=== PATIENT | male | born 1970 | race Caucasian/White ===

== ENCOUNTER 2016-09-30 22:48 | Emergency (ER) | payer SELFPAY ==
[~2016-09-30] VITALS: Ht 165.1 cm; Wt 95.3 kg
[~2016-09-30 22:48] MED LIST: FOLI1TAB24 PO; MULT-974 PO; NF-DES50T; SERT50TA2 PO; THIA100T12 PO; ZLP10T PO
--- OUTSIDE RECORDS SUMMARY | 2016-09-30 22:54 | XMS REPORT | Continuity of Care Document ---
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 Role Phone ASA VALENCIA DO PCP Insurance Providers Payer Name Policy Number Subscriber Name Relationship Self Pay Rafael Milton 20 Self / Same As Patient Advance Directives Directive Response Recorded Date/Time Advance Directives No 07/18/16 12:52am Health Care Power of Car Inspection And Repair Manager No 07/18/16 12:52am Organ Donor No 07/18/16 12:52am Resuscitation Status Full Code 07/18/16 12:52am Chief Complaint and Reason for Visit Chief Complaint ALCOHOL INTOXICATION;CHRONIC ALCOHOL ABUSE Reason for Visit Alcohol dependence Suicidal ideation Problems Active Problems Medical Problem Onset Date Status Alcohol abuse Unknown Acute Alcohol dependence Unknown Acute Alcohol intoxication Unknown Acute Alcohol intoxication Unknown Acute Chronic alcohol abuse Unknown Acute Hypoxia Unknown Acute Suicidal ideation Unknown Acute Medications Current Home Medications Medication Dose Units Route Directions Days/Qty Instructions Start Date Multivitamin 1 Each 1 Each Oral Daily 0 OVER THE COUNTER 07/19/16 Thiamine Hcl 100 Mg 100 Mg Oral Daily 0 OVER THE COUNTER 07/19/16 Folic Acid 1 Mg 1 Mg Oral Daily 0 OVER THE COUNTER 07/19/16 Past Home Medications Medication Directions Ordered Status Desvenlafaxine Succinate 50 Mg Tab, 10/15/08 Discontinued Zolpidem Tartrate 10 Mg Tab, 10 Mg Oral Bedtime 02/22/14 Discontinued Sertraline Hcl 50 Mg Tablet, 50 Mg Oral Daily 11/25/15 Discontinued Social History Social History Problem Response Recorded Date/Time Alcohol Use Regular Use 03/02/2016 2:37am Recreational Drug Use Y THC, ACID IN HIS 20'S, +IV METH 03/02/2016 2:37am Recent Foreign Travel No 07/18/2016 1:00am Recent Infectious Disease Exposure No 07/18/2016 1:00am Sexually Transmitted Disease No 07/18/2016 1:13am HIV/AIDS No 07/18/2016 1:13am Smoking Status Current Everyday Smoker 07/18/2016 1:11am Do you dip or chew tobacco? Yes 03/02/2016 2:37am Type Used Smokeless Tobacco 07/19/2016 10:33am Recent Hopitalizations No 07/18/2016 1:13am Sexually Transmitted Disease No 07/18/2016 1:13am Query Response Start Date Stop Date Smoking Status Current Everyday Smoker Hospital Discharge Instructions Patient Instructions Physician Instructions Plan of Care/Instructions/FU: transferr to [facility] today. Patient to take multivitamins, thiamine 100 mg and folic acid 1 mg Activity as Tolerated: Yes Discharge Diet: No Restrictions Care Plan Patient Instructions:: transferr to [facility] today.Patient to take multivitamins, thiamine 100 mg and folic acid 1 mg Plan of Care Discharge Date 07/19/16 10:30am Disposition 05 XFER OTHER Instructions/Education Provided ALCOHOL AND SUBSTANCE ABUSE Forms Provided Follow-Up Fax PDI Medical Prescriptions See Medication Section Referrals ASA VALENCIA DO (Unspecified) - Address: [address] [place] [address] [phone] Reason(s) for Referral: FOLLOW UP WITH DR VALENCIA NEEDED Care Plan and Goals See Discharge Instructions Section Functional Status Query Response Date Recorded Patient Orientation Person Place Time Situation Eyes Open July 19, 2016 10:33am Comprehension Ability Understands Concepts July 19, 2016 8:25am Allergies, Adverse Reactions, Alerts Allergen Type Severity Reaction Status Last Updated Codeine Allergy Unknown Active 09/23/05 Immunizations No immunization records. Vital Signs Acute Vital Signs Vital Response Date/Time Temperature (Fahrenheit) 97.5 degrees F (97.6 - 99.5) 07/19/2016 8:00am Temperature (Calculated Celsius) 36.66524 degrees C (36.4 - 37.5) 07/19/2016 8:00am Temperature Source Tympanic 07/19/2016 8:00am Pulse Rate (adult) 95 bpm (60 - 90) 07/19/2016 8:00am Respiratory Rate 20 bpm (12 - 24) 07/19/2016 8:00am O2 Sat by Pulse Oximetry 95 % (88 - 100) 07/19/2016 8:00am Blood Pressure 134/89 mm Hg 07/19/2016 8:00am Blood Pressure Mean 104 mm Hg 07/19/2016 8:00am Pain Numeric Pain Scale 0-No Pain 07/19/2016 10:30am Height (Feet) 5 feet 07/18/2016 12:48am Height (Inches) 5.00 inches 07/18/2016 12:48am Height (Calculated Centimeters) 165.856476 cm 07/18/2016 12:48am Weight (Pounds) 204 pounds 07/19/2016 6:00am Weight (Ounces) 3.2 oz 07/18/2016 6:00am Weight (Calculated Grams) 15924.844 gm 07/19/2016 6:00am Weight (Calculated Kilograms) 92.741416 kilograms 07/19/2016 6:00am Calculated BMI 33.7 07/18/2016 12:48am Capillary Refill Capillary Refill Less Than 3 Seconds 07/18/2016 10:00pm Results Laboratory Results Test Name Result Units Flags Reference Collection Date/Time Result Date/ Time Comments White Blood Count 8.8 10^3/uL 4.3-11.0 07/17/2016 10:16pm 07/17/2016 10 :26pm Red Blood Count 4.94 10^6/uL 4.35-5.85 07/17/2016 10:16pm 07/17/2016 10 :26pm Hemoglobin 15.7 G/DL 13.3-17.7 07/17/2016 10:16pm 07/17/2016 10:26pm Hematocrit 44 % 40-54 07/17/2016 10:16pm 07/17/2016 10:26pm Mean Corpuscular Volume 90 FL 80-99 07/17/2016 10:16pm 07/17/2016 10: 26pm Mean Corpuscular Hemoglobin 32 PG 25-34 07/17/2016 10:16pm 07/17/2016 10:26pm Mean Corpuscular Hemoglobin Concent 35 G/DL 32-36 07/17/2016 10:16pm 10:26pm Red Cell Distribution Width 13.5 % 10.0-14.5 07/17/2016 10:16pm 2015 10:26pm Platelet Count 296 10^3/uL 130-400 07/17/2016 10:16pm 07/17/2016 10: 26pm Mean Platelet Volume 11.1 FL H 7.4-10.4 07/17/2016 10:16pm 07/17/2016 10: 26pm Neutrophils (%) (Auto) 41 % L 42-75 07/17/2016 10:16pm 07/17/2016 10: 26pm Lymphocytes (%) (Auto) 51 % H 12-44 07/17/2016 10:16pm 07/17/2016 10: 26pm Monocytes (%) (Auto) 6 % 0-12 07/17/2016 10:16pm 07/17/2016 10:26pm Eosinophils (%) (Auto) 2 % 0-10 07/17/2016 10:16pm 07/17/2016 10:26pm Basophils (%) (Auto) 0 % 0-10 07/17/2016 10:16pm 07/17/2016 10:26pm Neutrophils # (Auto) 3.6 X 10^3 1.8-7.8 07/17/2016 10:16pm 07/17/2016 10:26pm Lymphocytes # (Auto) 4.5 X 10^3 H 1.0-4.0 07/17/2016 10:16pm 07/17/2016 10:26pm Monocytes # (Auto) 0.5 X 10^3 0.0-1.0 07/17/2016 10:16pm 07/17/2016 10: 26pm Eosinophils # (Auto) 0.2 10^3/uL 0.0-0.3 07/17/2016 10:16pm 07/17/2016 10:26pm Basophils # (Auto) 0.0 10^3/uL 0.0-0.1 07/17/2016 10:16pm 07/17/2016 10 :26pm Prothrombin Time 13.2 SEC 12.2-14.7 07/18/2016 3:50am 07/18/2016 4: 40am INR Comment 1.0 0.8-1.4 07/18/2016 3:50am 07/18/2016 4:40am INTERPRETIVE DATA SUGGESTED THERAPEUTIC RANGE FOR INR'S: VENOUS THROMBOSIS, PULMONARY EMBOLISM, OR PREVENTION OF SYSTEMIC EMBOLISM (EG. IN ATRIAL FIBRILLATION): 2.0 - 3.0 MECHANICAL PROSTHETIC HEART VALVES: 2.5 - 3.5* *NOTE: INR'S UP TO 4.5 MAY BE NECESSARY IN SELECTED GROUPS OF HIGH RISK PATIENTS. [employer] CONSENSUS CONFERENCE ON ANTITHROMBOTIC THERAPY (2000). Activated Partial Thromboplast Time 28 SEC 24-35 07/18/2016 3:50am 4:41am Urine Color YELLOW 07/17/2016 10:42pm 07/17/2016 10:56pm Urine Clarity CLEAR 07/17/2016 10:42pm 07/17/2016 10:56pm Urine pH 5 5-9 07/17/2016 10:42pm 07/17/2016 10:56pm Urine Specific [place] 1.015 * 1.016-1.022 07/17/2016 10:42pm 2015 10:56pm Urine Protein NEGATIVE NEGATIVE 07/17/2016 10:42pm 07/17/2016 10: 56pm Urine Glucose (UA) NEGATIVE NEGATIVE 07/17/2016 10:42pm 07/17/2016 10 :56pm Urine RBC (Auto) 1+ * NEGATIVE 07/17/2016 10:42pm 07/17/2016 10:56pm Urine Ketones 1+ * NEGATIVE 07/17/2016 10:42pm 07/17/2016 10:56pm Urine Nitrite NEGATIVE NEGATIVE 07/17/2016 10:42pm 07/17/2016 10: 56pm Urine Bilirubin NEGATIVE NEGATIVE 07/17/2016 10:42pm 07/17/2016 10: 56pm Urine Urobilinogen NORMAL MG/DL NORMAL 07/17/2016 10:42pm 07/17/2016 10 :56pm Urine Leukocyte Esterase NEGATIVE NEGATIVE 07/17/2016 10:42pm 2015 10:56pm Urine RBC 2-5 /HPF * 07/17/2016 10:42pm 07/17/2016 10:56pm Urine WBC NONE /HPF 07/17/2016 10:42pm 07/17/2016 10:56pm Urine Bacteria NONE /HPF 07/17/2016 10:42pm 07/17/2016 10:56pm Urine Crystals NONE /LPF 07/17/2016 10:42pm 07/17/2016 10:56pm Urine Casts NONE /LPF 07/17/2016 10:42pm 07/17/2016 10:56pm Urine Mucus NEGATIVE /LPF 07/17/2016 10:42pm 07/17/2016 10:56pm Urine Culture Indicated NO 07/17/2016 10:42pm 07/17/2016 10:56pm Sodium Level 140 MMOL/L 135-145 07/19/2016 5:30am 07/19/2016 6:42am Potassium Level 3.5 MMOL/L L 3.6-5.0 07/19/2016 5:30am 07/19/2016 6:42am Chloride Level 111 MMOL/L H 98-107 07/19/2016 5:30am 07/19/2016 6:42am Carbon Dioxide Level 21 MMOL/L 21-32 07/19/2016 5:30am 07/19/2016 6: 42am Anion Gap 8 MMOL/L 5-14 07/19/2016 5:30am 07/19/2016 6:42am Blood Urea Nitrogen 9 MG/DL 7-18 07/19/2016 5:30am 07/19/2016 6:42am Creatinine 0.77 MG/DL 0.60-1.30 07/19/2016 5:30am 07/19/2016 6:42am BUN/Creatinine Ratio 12 07/19/2016 5:30am 07/19/2016 6:42am Estimat Glomerular Filtration Rate > 60 07/19/2016 5:30am 2015 6:42am GFR INTERPRETIVE DATA UNITS FOR ESTIMATED GFR (eGFR): mL/min/1.73 M2 REFERENCE RANGE FOR ESTIMATED GFR (eGFR) eGFR NORMAL eGFR >60 MODERATELY DECREASED eGFR 30-59 SEVERLY DECREASED eGFR 15-29 KIDNEY FAILURE <15 (OR DIALYSIS) Glucose Level 117 MG/DL H 70-105 07/19/2016 5:30am 07/19/2016 6:42am Glucometer 127 MG/DL H 70-110 07/19/2016 5:09am 07/19/2016 5:16am Calcium Level 8.4 MG/DL L 8.5-10.1 07/19/2016 5:30am 07/19/2016 6:42am Total Bilirubin 0.8 MG/DL 0.1-1.0 07/19/2016 5:30am 07/19/2016 6:42am Alkaline Phosphatase 75 U/L 40-136 07/19/2016 5:30am 07/19/2016 6:42am Aspartate Amino Transf (AST/SGOT) 20 U/L 5-34 07/19/2016 5:30am 2015 6:42am Alanine Aminotransferase (ALT/SGPT) 17 U/L 0-55 07/19/2016 5:30am 07/19 6:42am Total Protein 5.7 G/DL L 6.4-8.2 07/19/2016 5:30am 07/19/2016 6:42am Albumin 3.4 G/DL 3.2-4.5 07/19/2016 5:30am 07/19/2016 6:42am Salicylates Level < 5.0 MG/DL L 5.0-20.0 07/17/2016 10:16pm 07/17/2016 10 :44pm Acetaminophen Level < 10 UG/ML L 10-30 07/17/2016 10:16pm 07/17/2016 10: 44pm Hemoglobin A1c 5.1 % 4.5-6.2 07/18/2016 3:50am 07/18/2016 5:34pm Microbiology Results Procedure Source Result Collection Date/Time Result Date/Time MRSA Screen Nasal MRSA not isolated 07/18/2016 12:50am 07/19/2016 9:32am Procedures Procedure Status Date Provider(s) Tracing only of electrocardiogram Completed 07/17/16 EDITH ALMEIDA DO Encounters Encounter Location Arrival/Admit Date Discharge/Depart Date Attending Provider Discharged Inpatient (obs) [facility] [address] 07/17/16 10:55pm 07/19/16 10:30am ASA VALENCIA DO Recent Diagnosis Alcohol dependence Suicidal ideation
[2016-09-30] MEDS ORDERED: NS IV 1000 ML 1,000 ML IV ONE (22:56)
[2016-09-30 23:09] LABS: BASOPHILS % (AUTO) 0 % (0-10); EOSINOPHILS # (AUTO) 0.1 10^3/uL (0.0-0.3); EOSINOPHILS % (AUTO) 1 % (0-10); LYMPHOCYTES % (AUTO) 50 % (12-44); MEAN CORPUSCULAR HEMOGLOBIN 31 PG (25-34); MEAN CORPUSCULAR HGB CONC 35 G/DL (32-36); MEAN CORPUSCULAR VOLUME 87 FL (80-99); MEAN PLATELET VOLUME 10.7 FL (7.4-10.4); MONOCYTES # (AUTO) 0.6 X 10^3 (0.0-1.0); MONOCYTES % (AUTO) 6 % (0-12); NEUTROPHILS # (AUTO) 4.3 X 10^3 (1.8-7.8); NEUTROPHILS % (AUTO) 43 % (42-75); PLATELET COUNT 285 10^3/uL (130-400); RED CELL DISTRIBUTION WIDTH 13.9 % (10.0-14.5)
--- NOTE | 2016-09-30 23:11 | ED Psychosocial ---
General Chief Complaint: Psych/Social Disorder Stated Complaint: NEEDS TO DETOX, WANTS TO SEE DOC Nursing Triage Note: Pt reports he is here for alcohol detox. Pt reports he has drank a 30 pack of beer today and fifth of whiskey. Pt reports he typically drinks at least a fifth of whiskey daily. Pt also reports he needs detox from meth and states he last used 3 days ago. Source: patient Exam Limitations: intoxication History of Present Illness Time seen by provider: 22:58 Initial Comments Here with report of wanting detox due to alcohol and drugs. Apparently he was clean for 60 days but at least a week ago started drinking again. He used methamphetamine about 3 days ago. Reports drinking a case (30 pack) of beer and a fifth of whiskey today or within the last 2 days. Denies any injury or other problems. States that he just wants help and presented to the ER [facility] for evaluation. Timing/Duration: week, getting worse Severity: moderate Allergies and Home Medications Allergies Coded Allergies: codeine (Verified Allergy, Unknown, 09/23/05) Home Medications Folic Acid 1 Mg Tablet #0 1 MG PO DAILY OVER THE COUNTER Prescribed by: ZAID PENG on 07/19/16922 Multivitamin 1 Each Tablet #0 1 EACH PO DAILY OVER THE COUNTER Prescribed by: ZAID PENG on 07/19/16922 Thiamine HCl 100 Mg Tablet #0 100 MG PO DAILY OVER THE COUNTER Prescribed by: ZAID PENG on 07/19/16922 Constitutional: no symptoms reportedNo chills, No fever EENTM: no symptoms reportedNo nose congestion, No throat pain Respiratory: No cough, No short of breath Cardiovascular: No chest pain, No palpitations Gastrointestinal: No abdominal pain, No nausea, No vomiting Genitourinary: No dysuria, No pain Musculoskeletal: no symptoms reported Skin: no symptoms reported Psychiatric/Neurological: See HPI Emotional ProblemsDenies Weakness All Other Systems Reviewed Negative Unless Noted: Yes Past Nhxoszo-[id number]-[id number] Hx Patient Social History Alcohol Use: Regular Use Recreational Drug Use: Yes (meth) Type Used: Smokeless Tobacco Former Smoker/When Quit: 2nd Hand Smoke Exposure: Yes Recent Foreign Travel: No Contact w/Someone Who Travel: No Recent Infectious Disease Expo: No Recent Hopitalizations: No Immunizations Up To Date Tetanus Booster (TDap): Less than 5yrs Date of Influenza Vaccine: May 18, 2016 Seasonal Allergies Seasonal Allergies: No Surgeries HX Surgeries: Yes (COLONOSCOPY, LEFT EYE SURGERY FOR STRABISMUS AGE 4) Surgeries: Eye Surgery Respiratory Hx Respiratory Disorders: Yes Respiratory Disorders: Pneumonia Cardiovascular Hx Cardiac Disorders: No Neurological Hx Neurological Disorders: Yes (ALCOHOL WITHDRAWL SEIZURES) Neurological Disorders: Seizure Disorder Reproductive System Hx Reproductive Disorders: No Sexually Transmitted Disease: No HIV/AIDS: No Genitourinary Hx Genitourinary Disorders: No Gastrointestinal Hx Gastrointestinal Disorders: Yes (HEPATOMEGALY) Gastrointestinal Disorders: Gastroesophageal Reflux Musculoskeletal Hx Musculoskeletal Disorders: No Endocrine Hx Endocrine Disorders: No HEENT HX ENT Disorders: No Loss of Vision: Denies Hearing Impairment: Denies Cancer Hx Cancer: No Psychosocial Hx Psychiatric Problems: Yes (ALCOHOLISM; SUICIDAL IDEATIONS) Behavioral Health Disorders: Depression Integumentary HX Skin/Integumentary Disorder: No Blood Transfusions Hx Blood Disorders: No Adverse Reaction to a Blood Tr: No Reviewed Nursing Assessment Reviewed/Agree w Nursing PMH: Yes Family Medical History Significant Family History: No Pertinent Family Hx, Hypertension Family Medial History: Patient reports no known family medical history. Physical Exam Vital Signs Vital Sign - Last 12Hours 09/30/16 09/30/16 22:59 23:12 Temp 97.5 Pulse 112 Resp 18 B/P 143/108 Pulse Ox 90 O2 Delivery Room Air O2 Flow Rate 2 Capillary Refill : Less Than 3 Seconds General Appearance: WD/WN no apparent distress HEENT: PERRL/EOMI pharynx normal other (did have tobacco in his mouth.) Neck: full range of motion supple Respiratory: lungs clear normal breath sounds Cardiovascular: no murmur tachycardia Gastrointestinal: non tender soft Extremities: non-tender normal inspection Neurologic/Psychiatric: alert oriented x 3 other (slurred speech) Appearance/Memory: appropriate insight disheveled Behavior/Eye Contact: cooperative good eye contact Thoughts/Hallucinations: normal thought pattern no apparent hallucination Skin: normal color warm/dry Progress/Results/Core Measures Results/Orders Lab Results Laboratory Tests Test 09/30/16 00:17 09/30/16 22:57 Range/Units Ur Tricyclic Antidepressants Screen NEGATIVE NEGATIVE Urine Amphetamines Screen NEGATIVE NEGATIVE Urine Barbiturates Screen NEGATIVE NEGATIVE Urine Benzodiazepines Screen NEGATIVE NEGATIVE Urine Cannabinoids Screen NEGATIVE NEGATIVE Urine Cocaine Screen NEGATIVE NEGATIVE Urine Methadone Screen NEGATIVE NEGATIVE Urine Methamphetamines Screen NEGATIVE NEGATIVE Urine Opiates Screen NEGATIVE NEGATIVE Urine Oxycodone Screen NEGATIVE NEGATIVE Urine Phencyclidine Screen NEGATIVE NEGATIVE Urine Propoxyphene Screen NEGATIVE NEGATIVE Acetaminophen Level < 10 L 10-30 UG/ML Alanine Aminotransferase (ALT/SGPT) 14 0-55 U/L Albumin 4.2 3.2-4.5 G/DL Alkaline Phosphatase 86 40-136 U/L Anion Gap 14 5-14 MMOL/L Aspartate Amino Transf (AST/SGOT) 25 5-34 U/L BUN/Creatinine Ratio 8 Basophils # (Auto) 0.0 0.0-0.1 10^3/uL Basophils (%) (Auto) 0 0-10 % Blood Urea Nitrogen 7 7-18 MG/DL Calcium Level 8.6 8.5-10.1 MG/DL Carbon Dioxide Level 22 21-32 MMOL/L Chloride Level 100 98-107 MMOL/L Creatinine 0.87 0.60-1.30 MG/DL Eosinophils # (Auto) 0.1 0.0-0.3 10^3/uL Eosinophils (%) (Auto) 1 0-10 % Estimat Glomerular Filtration Rate > 60 Glucose Level 138 H 70-105 MG/DL Hematocrit 44 40-54 % Hemoglobin 15.4 13.3-17.7 G/DL Lymphocytes # (Auto) 5.0 H 1.0-4.0 X 10^3 Lymphocytes (%) (Auto) 50 H 12-44 % Mean Corpuscular Hemoglobin 31 25-34 PG Mean Corpuscular Hemoglobin Concent 35 32-36 G/DL Mean Corpuscular Volume 87 80-99 FL Mean Platelet Volume 10.7 H 7.4-10.4 FL Monocytes # (Auto) 0.6 0.0-1.0 X 10^3 Monocytes (%) (Auto) 6 0-12 % Neutrophils # (Auto) 4.3 1.8-7.8 X 10^3 Neutrophils (%) (Auto) 43 42-75 % Platelet Count 285 130-400 10^3/uL Potassium Level 3.4 L 3.6-5.0 MMOL/L Red Blood Count 5.00 4.35-5.85 10^6/uL Red Cell Distribution Width 13.9 10.0-14.5 % Salicylates Level < 5.0 L 5.0-20.0 MG/DL Serum Alcohol 296 H <10 MG/DL Sodium Level 136 135-145 MMOL/L Total Bilirubin 0.6 0.1-1.0 MG/DL Total Protein 7.0 6.4-8.2 G/DL White Blood Count 10.0 4.3-11.0 10^3/uL My Orders Orders-DANIELLA LANDA MD Acetaminophen (09/30/16 22:56) Alcohol (09/30/16 22:56) Cbc With Automated Diff (09/30/16 22:56) Comprehensive Metabolic Panel (09/30/16 22:56) Drug Screen Stat (Urine) (09/30/16 22:56) Salicylate (09/30/16 22:56) Ekg Tracing (09/30/16 22:56) Saline Lock/Iv-Start (09/30/16 22:56) Ns Iv 1000 Ml (Sodium Chloride 0.9%) (09/30/16 22:56) O2 (09/30/16 23:12) Lactated Ringers (Lr 1000 Ml Iv Solution (09/30/16 23:27) Medications Given in ED Current Medications Medications Dose Ordered Sig/Yadira Route Start Time Stop Time Status Last Admin Dose Admin Lactated Ringer's 1,000 ml @ 0 mls/hr Q0M ONCE IV 09/30/16 23:27 09/30/16 23:28 DC 09/30/16 23:33 999 MLS/HR Sodium Chloride 1,000 ml @ 0 mls/hr Q0M ONCE IV 09/30/16 22:56 09/30/16 22:58 DC 09/30/16 23:05 999 MLS/HR Vital Signs/I&O Vital Sign - Last 12Hours 09/30/16 09/30/16 22:59 23:12 Temp 97.5 Pulse 112 Resp 18 B/P 143/108 Pulse Ox 90 89 O2 Delivery Room Air Nasal Cannula O2 Flow Rate 2 Blood Pressure Mean: 120 Progress Note : Progress Note Seen and evaluated. IV, labs and UA ordered. EKG ordered. All of this is an effort for medical clearance. Patient is currently intoxicated and we do not have detox capability currently. I did discuss with him about following up with his doctor who helped him the last time and I suspect would be willing to assist him again. This was discussed with the patient verbalize understanding. We will ensure that he has no significant issues otherwise and then discharged home for follow-up with his primary care (Dr. Valencia). Copy of chart Dr. Valencia. Monitor patient. 0120: Labs reviewed. Alcohol elevated but otherwise no significant findings. Discharged home with return precautions. Patient will follow-up with Dr. Valencia for further evaluation and treatment of alcohol. Patient verbalize understanding instructions and agreement with plan. ECG Initial ECG Impression Date: Sep 30, 2016 Initial ECG Impression Time: 23:09 Initial ECG Rate: 115 Initial ECG Rhythm: Normal Sinus Comment Sinus tachycardia with normal axis. No evidence of ST elevation VA. Similar to previous of 07/17/16 including right. Interpreted by me. Departure Impression Impression: Primary Impression: Alcohol abuse Additional Impression: Alcohol intoxication Qualified Code: F10.120 - Alcohol abuse with intoxication, uncomplicated Disposition: HOME, SELF-CARE Condition: Improved Departure-Patient Inst. Decision time for Depature: 01:23 Referrals: ASA VALENCIA DO (PCP/Family) Primary Care Physician Patient Instructions: ALCOHOL AND SUBSTANCE ABUSE Add. Discharge Instructions: All discharge instructions reviewed with patient and/or family. Voiced understanding. Follow-up with Dr. Valencia today for recheck and further evaluation and did discuss alcohol detox and/or treatment. Avoid drugs. He should not drink alcohol. Return for worsening, fever, vomiting, weakness, breathing problems or other concerns as needed. Copy Copies To 1: ASA VALENCIA TIMOTHY D MD Sep 30, 2016 23:11
[2016-09-30 23:25] LABS: ALANINE AMINOTRANSFERASE 14 U/L (0-55); ALBUMIN 4.2 G/DL (3.2-4.5); ALCOHOL 296 MG/DL (<10); ANION GAP 14 MMOL/L (5-14); ASPARTATE AMINO TRANSFERASE 25 U/L (5-34); BILIRUBIN,TOTAL 0.6 MG/DL (0.1-1.0); BLOOD UREA NITROGEN 7 MG/DL (7-18); BUN/CREATININE RATIO 8; CALCIUM 8.6 MG/DL (8.5-10.1); CARBON DIOXIDE 22 MMOL/L (21-32); CHLORIDE 100 MMOL/L (98-107); CREATININE SERUM 0.87 MG/DL (0.60-1.30); GFR ESTIMATED > 60; GLUCOSE 138 MG/DL (70-105); POTASSIUM 3.4 MMOL/L (3.6-5.0); SALICYLATE < 5.0 MG/DL (5.0-20.0); SODIUM 136 MMOL/L (135-145)
[2016-09-30] MEDS ORDERED: LACTATED RINGERS 1,000 ML IV ONE (23:27)
[2016-09-30 23:35] LABS: ACETAMINOPHEN < 10 UG/ML (10-30)
[2016-10-01 01:35] VITALS: BP 125/104
== END 2016-10-01 01:35 | disposition home or self-care (01) ==
LOC: EDUNIT# 22:48 → ER 22:50
DX: F10.229 Alcohol dependence with intoxication, unspecified (principal); F15.10 Other stimulant abuse, uncomplicated; Y90.8 Blood alcohol level of 240 mg/100 ml or more; F17.220 Nicotine dependence, chewing tobacco, uncomplicated
CPT/HCPCS: 36415; 80053; 80306; 80320; 80329; 85025; 93005; 96360

== ENCOUNTER 2017-02-01 00:27 | Emergency (ER) | payer SELFPAY ==
[~2017-02-01] VITALS: Ht 167.6 cm; Wt 95.3 kg
--- NOTE | 2017-02-01 01:03 | ED Psychosocial ---
General Chief Complaint: Substance Abuse Stated Complaint: DETOX Source: patient, RN notes reviewed, old records Exam Limitations: no limitations History of Present Illness Time seen by provider: 01:00 Initial Comments Patient presents requesting ETOH detox. Has long/extensive hx of ETOH abuse. Has been thru detox before and wishes to pursue it again. 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 Reports drinking @ least a 30 pack of beer today. Timing/Duration: constant, getting worse Associated Symptoms: ingestion Allergies and Home Medications Allergies Coded Allergies: codeine (Verified Allergy, Unknown, 09/23/05) Home Medications Folic Acid 1 Mg Tablet, 1 MG PO DAILY, #0 OVER THE COUNTER Prescribed by: ZAID PENG on 07/19/16922 Multivitamin 1 Each Tablet, 1 EACH PO DAILY, #0 OVER THE COUNTER Prescribed by: ZAID PENG on 07/19/16922 Thiamine HCl 100 Mg Tablet, 100 MG PO DAILY, #0 OVER THE COUNTER Prescribed by: ZAID PENG on 07/19/16922 Constitutional: see HPI All Other Systems Reviewed Negative Unless Noted: Yes (Negative excepted noted.) Past Escjydi-Cynaxt-Xhnxep Hx Patient Social History Type Used: Smokeless Tobacco 2nd Hand Smoke Exposure: Yes Recent Foreign Travel: No Contact w/Someone Who Travel: No Recent Hopitalizations: No Immunizations Up To Date Tetanus Booster (TDap): Less than 5yrs Date of Influenza Vaccine: May 18, 2016 Seasonal Allergies Seasonal Allergies: No Surgeries HX Surgeries: Yes (COLONOSCOPY, LEFT EYE SURGERY FOR STRABISMUS AGE 4) Surgeries: Eye Surgery Respiratory Hx Respiratory Disorders: Yes Respiratory Disorders: Pneumonia Cardiovascular Hx Cardiac Disorders: No Neurological Hx Neurological Disorders: Yes (ALCOHOL WITHDRAWL SEIZURES) Neurological Disorders: Seizure Disorder Reproductive System Hx Reproductive Disorders: No Sexually Transmitted Disease: No HIV/AIDS: No Genitourinary Hx Genitourinary Disorders: No Gastrointestinal Hx Gastrointestinal Disorders: Yes (HEPATOMEGALY) Gastrointestinal Disorders: Gastroesophageal Reflux Musculoskeletal Hx Musculoskeletal Disorders: No Endocrine Hx Endocrine Disorders: No HEENT HX ENT Disorders: No Loss of Vision: Denies Hearing Impairment: Denies Cancer Hx Cancer: No Psychosocial Hx Psychiatric Problems: Yes (ALCOHOLISM; SUICIDAL IDEATIONS) Behavioral Health Disorders: Depression Integumentary HX Skin/Integumentary Disorder: No Blood Transfusions Hx Blood Disorders: No Adverse Reaction to a Blood Tr: No Family Medical History Significant Family History: No Pertinent Family Hx, Hypertension Family Medial History: Patient reports no known family medical history. Physical Exam Vital Signs Vital Sign - Last 12Hours 02/01/17 00:34 Temp 98.1 Pulse 95 Resp 20 B/P (MAP) 142/104 Pulse Ox 98 O2 Delivery Room Air Capillary Refill : General Appearance: WD/WN, mild distress Respiratory: no respiratory distress Cardiovascular: regular rate, rhythm Neurologic/Psychiatric: no motor/sensory deficits, alert, depressed affect Appearance/Memory: denies illness, disheveled Behavior/Eye Contact: cooperative Thoughts/Hallucinations: normal thought pattern Skin: warm/dry Progress/Results/Core Measures Results/Orders Lab Results Laboratory Tests Test 02/01/17 00:40 02/01/17 01:55 Range/Units White Blood Count 11.5 H 4.3-11.0 10^3/uL Red Blood Count 4.59 4.35-5.85 10^6/uL Hemoglobin 15.1 13.3-17.7 G/DL Hematocrit 44 40-54 % Mean Corpuscular Volume 95 80-99 FL Mean Corpuscular Hemoglobin 33 25-34 PG Mean Corpuscular Hemoglobin Concent 35 32-36 G/DL Red Cell Distribution Width 13.5 10.0-14.5 % Platelet Count 193 130-400 10^3/uL Mean Platelet Volume 11.0 H 7.4-10.4 FL Neutrophils (%) (Auto) 46 42-75 % Lymphocytes (%) (Auto) 44 12-44 % Monocytes (%) (Auto) 8 0-12 % Eosinophils (%) (Auto) 2 0-10 % Basophils (%) (Auto) 0 0-10 % Neutrophils # (Auto) 5.2 1.8-7.8 X 10^3 Lymphocytes # (Auto) 5.1 H 1.0-4.0 X 10^3 Monocytes # (Auto) 1.0 0.0-1.0 X 10^3 Eosinophils # (Auto) 0.2 0.0-0.3 10^3/uL Basophils # (Auto) 0.0 0.0-0.1 10^3/uL Sodium Level 136 135-145 MMOL/L Potassium Level 3.3 L 3.6-5.0 MMOL/L Chloride Level 103 98-107 MMOL/L Carbon Dioxide Level 19 L 21-32 MMOL/L Anion Gap 14 5-14 MMOL/L Blood Urea Nitrogen 8 7-18 MG/DL Creatinine 0.78 0.60-1.30 MG/DL Estimat Glomerular Filtration Rate > 60 BUN/Creatinine Ratio 10 0-20 Glucose Level 129 H 70-105 MG/DL Calcium Level 8.9 8.5-10.1 MG/DL Magnesium Level 2.2 1.8-2.4 MG/DL Total Bilirubin 0.7 0.1-1.0 MG/DL Aspartate Amino Transf (AST/SGOT) 20 5-34 U/L Alanine Aminotransferase (ALT/SGPT) 16 0-55 U/L Alkaline Phosphatase 78 40-136 U/L Total Protein 7.4 6.4-8.2 GM/DL Albumin 4.0 3.2-4.5 GM/DL Serum Alcohol 276 H <10 MG/DL Urine Color YELLOW Urine Clarity CLEAR Urine pH 5 5-9 Urine Specific [place] 1.025 H 1.016-1.022 Urine Protein NEGATIVE NEGATIVE Urine Glucose (UA) NEGATIVE NEGATIVE Urine Ketones 1+ H NEGATIVE Urine Nitrite NEGATIVE NEGATIVE Urine Bilirubin NEGATIVE NEGATIVE Urine Urobilinogen NORMAL NORMAL MG/DL Urine Leukocyte Esterase 1+ H NEGATIVE Urine RBC (Auto) 1+ H NEGATIVE Urine RBC NONE /HPF Urine WBC NONE /HPF Urine Squamous Epithelial Cells 2-5 /HPF Urine Crystals NONE /LPF Urine Bacteria NEGATIVE /HPF Urine Casts NONE /LPF Urine Mucus MODERATE H /LPF Urine Culture Indicated NO Urine Opiates Screen NEGATIVE NEGATIVE Urine Oxycodone Screen NEGATIVE NEGATIVE Urine Methadone Screen NEGATIVE NEGATIVE Urine Propoxyphene Screen NEGATIVE NEGATIVE Urine Barbiturates Screen NEGATIVE NEGATIVE Ur Tricyclic Antidepressants Screen NEGATIVE NEGATIVE Urine Phencyclidine Screen NEGATIVE NEGATIVE Urine Amphetamines Screen NEGATIVE NEGATIVE Urine Methamphetamines Screen NEGATIVE NEGATIVE Urine Benzodiazepines Screen NEGATIVE NEGATIVE Urine Cocaine Screen NEGATIVE NEGATIVE Urine Cannabinoids Screen NEGATIVE NEGATIVE My Orders Orders - MELANIE RAMACHANDRAN DO Alcohol (02/01/17 01:00) Cbc With Automated Diff (02/01/17 01:00) Comprehensive Metabolic Panel (02/01/17 01:00) Drug Screen Stat (Urine) (02/01/17 01:00) Magnesium (02/01/17 01:00) Ua Culture If Indicated (02/01/17 01:00) Vital Signs/I&O Vital Sign - Last 12Hours 02/01/17 02/01/17 00:34 03:09 Temp 98.1 Pulse 95 78 Resp 20 18 B/P (MAP) 142/104 Pulse Ox 98 98 O2 Delivery Room Air Room Air Departure Impression Impression: Primary Impression: Alcohol dependence Additional Impression: Alcohol intoxication Disposition: 01 HOME, SELF-CARE Condition: Stable Departure-Patient Inst. Decision time for Depature: 02:39 Referrals: ASA VALENCIA DO (PCP/Family) Primary Care Physician Patient Instructions: ALCOHOL AND SUBSTANCE ABUSE, Alcohol Abuse and Alcoholism (DC) Add. Discharge Instructions: All discharge instructions reviewed with patient and/or family. Voiced understanding. NEED TO CALL THE [facility]HOL TRE[facility]MENT CENTER ([facility]) IN [place] LATER THIS AM, 02/01, TO ARRANGE TREATMENT. THERE NUMBER IS [phone]. MELANIE RAMACHANDRAN DO Feb 01, 2017 01:03
[2017-02-01 01:16] LABS: BASOPHILS % (AUTO) 0 % (0-10); EOSINOPHILS # (AUTO) 0.2 10^3/uL (0.0-0.3); EOSINOPHILS % (AUTO) 2 % (0-10); LYMPHOCYTES # (AUTO) 5.1 X 10^3 (1.0-4.0); LYMPHOCYTES % (AUTO) 44 % (12-44); MEAN CORPUSCULAR HEMOGLOBIN 33 PG (25-34); MEAN CORPUSCULAR HGB CONC 35 G/DL (32-36); MEAN CORPUSCULAR VOLUME 95 FL (80-99); MONOCYTES % (AUTO) 8 % (0-12); NEUTROPHILS # (AUTO) 5.2 X 10^3 (1.8-7.8); NEUTROPHILS % (AUTO) 46 % (42-75); PLATELET COUNT 193 10^3/uL (130-400); RED BLOOD COUNT 4.59 10^6/uL (4.35-5.85); RED CELL DISTRIBUTION WIDTH 13.5 % (10.0-14.5); WHITE BLOOD COUNT 11.5 10^3/uL (4.3-11.0)
[2017-02-01 01:34] LABS: ALANINE AMINOTRANSFERASE 16 U/L (0-55); ALCOHOL 276 MG/DL (<10); ANION GAP 14 MMOL/L (5-14); ASPARTATE AMINO TRANSFERASE 20 U/L (5-34); BILIRUBIN,TOTAL 0.7 MG/DL (0.1-1.0); BLOOD UREA NITROGEN 8 MG/DL (7-18); BUN/CREATININE RATIO 10 (0-20); CALCIUM 8.9 MG/DL (8.5-10.1); CARBON DIOXIDE 19 MMOL/L (21-32); CHLORIDE 103 MMOL/L (98-107); CREATININE SERUM 0.78 MG/DL (0.60-1.30); GFR ESTIMATED > 60; GLUCOSE 129 MG/DL (70-105); HEMOLYSIS 8 (0-29); ICTERUS 0.7 (0-1.9); LIPEMIA 2 (0-49); MAGNESIUM 2.2 MG/DL (1.8-2.4); POTASSIUM 3.3 MMOL/L (3.6-5.0); SODIUM 136 MMOL/L (135-145); TOTAL PROTEIN 7.4 GM/DL (6.4-8.2)
[2017-02-01 02:04] LABS: BILIRUBIN,URINE NEGATIVE (NEGATIVE); KETONES,URINE 1+ (NEGATIVE); LEUKOCYTE ESTERASE ,URINE 1+ (NEGATIVE); NITRITE,URINE NEGATIVE (NEGATIVE); PH,URINE 5 (5-9); PROTEIN,URINE NEGATIVE (NEGATIVE); UROBILINOGEN,URINE NORMAL (NORMAL)
[2017-02-01 03:09] VITALS: BP 130/80
== END 2017-02-01 03:00 | disposition home or self-care (01) ==
LOC: EDUNIT# 00:27 → ER 00:33
DX: F10.229 Alcohol dependence with intoxication, unspecified (principal); G40.909 Epilepsy, unspecified, not intractable, without status epilepticus; F17.290 Nicotine dependence, other tobacco product, uncomplicated
CPT/HCPCS: 36415; 80053; 80306; 80320; 81000; 83735; 85025; 99283

== ENCOUNTER 2017-11-12 00:44 | Emergency (ER) | payer SELFPAY ==
[~2017-11-12] VITALS: Ht 172.7 cm; Wt 70.3 kg
[2017-11-12] MEDS ORDERED: THIAMINE INJECTION 100 MG, FOLIC ACID INJECTION 1 MG, VITAMIN MULTI INJECTION 10 ML, MA... IV STA ×5 (01:01)
--- NOTE | 2017-11-12 01:10 | ED Psychosocial ---
General Stated Complaint: WANTS TO DETOX Source: patient, old records Exam Limitations: no limitations History of Present Illness Date Seen by Provider: Nov 12, 2017 Time Seen by Provider: 01:00 Initial Comments Patient presents to ER by caroline with a chief complaint that he just flew back in from [facility] and was doing some drinking approximately 1 gallon of whiskey and several beers tonight when he decided he needed to detox. He says he wants a medical detox that he can go back to [place] and go to the inpatient alcohol treatment center at [facility]. He says he has successfully done in inpatient alcohol withdrawal program at [place] [facility] or 7 years under the care of Dr. Valencia in the past. He now says nothing specifically happened he just wants to get detox tonight. He says his last drink was just before coming to the ER. He is having no seizures or headaches. He is having no nausea or vomiting. He has no fevers cough or chills. He says he's under treatment with vitamin B12 shots and testosterone shots and supposed to be on some blood pressure and anticholesterol medicines from a doctor who sees him in [facility] but he has not been taking any of the pills. He says is been a while since he seen Dr. Valencia and he came back to [place] because he had a job at the [employer] in [place], [place]. Tonight he says he was drinking at [place], [place]. He has specifically asked that he be given Librium in the ER to help with his withdrawal symptoms. When asked what his withdrawal symptoms are he states merely that he wants to quit drinking and detox. Allergies and Home Medications Allergies Coded Allergies: codeine (Verified Allergy, Unknown, 09/23/05) Home Medications Folic Acid 1 Mg Tablet, 1 MG PO DAILY OVER THE COUNTER Prescribed by: ZAID PENG on 07/19/16922 Multivitamin 1 Each Tablet, 1 EACH PO DAILY OVER THE COUNTER Prescribed by: ZAID PENG on 07/19/16922 Thiamine HCl 100 Mg Tablet, 100 MG PO DAILY OVER THE COUNTER Prescribed by: ZAID PENG on 07/19/16922 Patient Home Medication List Home Medication List Reviewed: Yes Constitutional: No chills, No diaphoresis, No fever EENTM: No ear discharge, No ear pain, No double vision, No eye pain Respiratory: No cough, No short of breath Cardiovascular: No chest pain, No edema, No Hx of Intervention, No palpitations Gastrointestinal: No abdominal pain, No constipation, No diarrhea, No nausea, No vomiting Genitourinary: No discharge, No dysuria Musculoskeletal: No back pain, No joint pain Skin: No pruritus, No rash Psychiatric/Neurological: Denies Headache, Denies Numbness Past Qwpftnk-Ozpslr-Trmqzq Hx Patient Social History Alcohol Use: Regular Use Alcohol Beverage of Choice: Beer, Whiskey Recreational Drug Use: No Drug of Choice: weed Smoking Status: Current Everyday Smoker Type Used: Cigarettes, Smokeless Tobacco 2nd Hand Smoke Exposure: Yes Recent Foreign Travel: No Contact w/Someone Who Travel: No Recent Hopitalizations: No Immunizations Up To Date Tetanus Booster (TDap): Less than 5yrs Date of Influenza Vaccine: May 18, 2016 Seasonal Allergies Seasonal Allergies: No Surgeries History of Surgeries: Yes (COLONOSCOPY, LEFT EYE SURGERY FOR STRABISMUS AGE 4) Surgeries: Eye Surgery Respiratory History of Respiratory Disorde: Yes Respiratory Disorders: Pneumonia Currently Using CPAP: No Currently Using BIPAP: No Cardiovascular History of Cardiac Disorders: No Neurological History of Neurological Disord: Yes (ALCOHOL WITHDRAWL SEIZURES) Neurological Disorders: Seizure Disorder Reproductive System Hx Reproductive Disorders: No Sexually Transmitted Disease: No HIV/AIDS: No Genitourinary History of Genitourinary Disor: No Gastrointestinal History of Gastrointestinal Di: Yes (HEPATOMEGALY) Gastrointestinal Disorders: Gastroesophageal Reflux Musculoskeletal History of Musculoskeletal Dis: No Endocrine History of Endocrine Disorders: No HEENT Loss of Vision: Denies Hearing Impairment: Denies Cancer History of Cancer: No Psychosocial History of Psychiatric Problem: Yes (ALCOHOLISM; SUICIDAL IDEATIONS) Behavioral Health Disorders: Depression Integumentary History of Skin or Integumenta: No Blood Transfusions History of Blood Disorders: No Adverse Reaction to a Blood Tr: No Family Medical History Significant Family History: No Pertinent Family Hx, Hypertension Family Medial History: Patient reports no known family medical history. Physical Exam Vital Signs Vital Signs - First Documented 11/12/17 00:50 Temp 98.3 Pulse 132 Resp 20 B/P (MAP) 150/111 (124) Pulse Ox 92 O2 Delivery Room Air Capillary Refill : General Appearance: WD/WN, no apparent distress HEENT: PERRL/EOMI, pharynx normal Neck: non-tender, normal inspection Respiratory: chest non-tender, lungs clear, normal breath sounds, no respiratory distress, no accessory muscle use Cardiovascular: normal peripheral pulses, regular rate, rhythm Peripheral Pulses: 2+ Radial Pulses (R), 2+ Radial Pulses (L) Gastrointestinal: normal bowel sounds, non tender, soft, distended Extremities: normal range of motion, non-tender, normal inspection, normal capillary refill Neurologic/Psychiatric: alert, other (overtly intoxicated with very mild slurring speech and slowed mentation.) Appearance/Memory: appropriate appearance, no memory impairment, disheveled, No impaired recent memory, No impaired remote memory Behavior/Eye Contact: cooperative, good eye contact, No avoids eye contact, No belligerent, No compulsive, No uncooperative Thoughts/Hallucinations: no apparent hallucination Skin: normal color, warm/dry Progress/Results/Core Measures Results/Orders Lab Results Laboratory Tests Test 11/12/17 01:17 11/12/17 01:37 Range/Units White Blood Count 12.7 H 4.3-11.0 10^3/uL Red Blood Count 5.05 4.35-5.85 10^6/uL Hemoglobin 15.8 13.3-17.7 G/DL Hematocrit 44 40-54 % Mean Corpuscular Volume 87 80-99 FL Mean Corpuscular Hemoglobin 31 25-34 PG Mean Corpuscular Hemoglobin Concent 36 32-36 G/DL Red Cell Distribution Width 13.7 10.0-14.5 % Platelet Count 310 130-400 10^3/uL Mean Platelet Volume 10.5 H 7.4-10.4 FL Neutrophils (%) (Auto) 36 L 42-75 % Lymphocytes (%) (Auto) 57 H 12-44 % Monocytes (%) (Auto) 5 0-12 % Eosinophils (%) (Auto) 2 0-10 % Basophils (%) (Auto) 0 0-10 % Neutrophils # (Auto) 4.6 1.8-7.8 X 10^3 Lymphocytes # (Auto) 7.2 H 1.0-4.0 X 10^3 Monocytes # (Auto) 0.6 0.0-1.0 X 10^3 Eosinophils # (Auto) 0.3 0.0-0.3 10^3/uL Basophils # (Auto) 0.0 0.0-0.1 10^3/uL Sodium Level 139 135-145 MMOL/L Potassium Level 3.5 L 3.6-5.0 MMOL/L Chloride Level 104 98-107 MMOL/L Carbon Dioxide Level 21 21-32 MMOL/L Anion Gap 14 5-14 MMOL/L Blood Urea Nitrogen 13 7-18 MG/DL Creatinine 0.78 0.60-1.30 MG/DL Estimat Glomerular Filtration Rate > 60 BUN/Creatinine Ratio 17 Glucose Level 100 70-105 MG/DL Calcium Level 8.8 8.5-10.1 MG/DL Magnesium Level 2.2 1.8-2.4 MG/DL Total Bilirubin 0.6 0.1-1.0 MG/DL Aspartate Amino Transf (AST/SGOT) 29 5-34 U/L Alanine Aminotransferase (ALT/SGPT) 27 0-55 U/L Alkaline Phosphatase 108 40-136 U/L Troponin I < 0.30 <0.30 NG/ML Total Protein 7.8 6.4-8.2 GM/DL Albumin 4.4 3.2-4.5 GM/DL Serum Alcohol 317 *H <10 MG/DL Urine Color YELLOW Urine Clarity CLEAR Urine pH 5 5-9 Urine Specific [place] 1.010 L 1.016-1.022 Urine Protein NEGATIVE NEGATIVE Urine Glucose (UA) NEGATIVE NEGATIVE Urine Ketones NEGATIVE NEGATIVE Urine Nitrite NEGATIVE NEGATIVE Urine Bilirubin NEGATIVE NEGATIVE Urine Urobilinogen NORMAL NORMAL MG/DL Urine Leukocyte Esterase NEGATIVE NEGATIVE Urine RBC (Auto) NEGATIVE NEGATIVE Urine RBC NONE /HPF Urine WBC NONE /HPF Urine Squamous Epithelial Cells RARE /HPF Urine Crystals NONE /LPF Urine Bacteria NEGATIVE /HPF Urine Casts NONE /LPF Urine Mucus NEGATIVE /LPF Urine Culture Indicated NO Urine Opiates Screen NEGATIVE NEGATIVE Urine Oxycodone Screen NEGATIVE NEGATIVE Urine Methadone Screen NEGATIVE NEGATIVE Urine Propoxyphene Screen NEGATIVE NEGATIVE Urine Barbiturates Screen NEGATIVE NEGATIVE Ur Tricyclic Antidepressants Screen NEGATIVE NEGATIVE Urine Phencyclidine Screen NEGATIVE NEGATIVE Urine Amphetamines Screen NEGATIVE NEGATIVE Urine Methamphetamines Screen NEGATIVE NEGATIVE Urine Benzodiazepines Screen NEGATIVE NEGATIVE Urine Cocaine Screen NEGATIVE NEGATIVE Urine Cannabinoids Screen NEGATIVE NEGATIVE My Orders Orders - DARIEL PERKINS Alcohol (11/12/17 01:01) Cbc With Automated Diff (11/12/17 01:01) Comprehensive Metabolic Panel (11/12/17 01:01) Drug Screen Stat (Urine) (11/12/17 01:01) Magnesium (11/12/17 01:01) Troponin I (11/12/17 01:01) Ua Culture If Indicated (11/12/17 01:01) Saline Lock/Iv-Start (11/12/17 01:01) Ekg Tracing (11/12/17 01:01) Monitor-Rhythm Ecg Trace Only (11/12/17 01:01) Thiamine Injection (Vitamin B-1 Injectio (11/12/17 01:01) Ns Iv 1000 Ml (Sodium Chloride 0.9%) (11/12/17 01:21) Magnesium Sulfate Inj (Magnesium Sulfate (11/12/17 01:21) Folic Acid Syr (Ed) (Folic Acid Syr (Ed) (11/12/17 01:21) Thiamine Injection (Vitamin B-1 Injectio (11/12/17 01:21) Vitamin Multi Injection (Mvi 12 Injectio (11/12/17 01:24) D5 1/2 Ns W/Kcl 10 Meq/L (Dextrose 5%/0. (11/12/17 01:56) D5 1/2 Ns W/Kcl 20 Meq/L (Dextrose 5%/0. (11/12/17 02:24) Folic Acid Syr (Ed) (Folic Acid Syr (Ed) (11/12/17 02:36) Medications Given in ED Current Medications Medications Dose Ordered Sig/Yadira Route Start Time Stop Time Status Last Admin Dose Admin Folic Acid 1 mg STK-MED ONCE .ROUTE 11/12/17 01:21 11/12/17 01:26 DC 11/12/17 01:37 1 MG Magnesium Sulfate 1 gm STK-MED ONCE .ROUTE 11/12/17 01:21 11/12/17 01:26 DC 11/12/17 01:37 1 GM Multivitamins 10 ml STK-MED ONCE IV 11/12/17 01:24 11/12/17 01:28 DC 11/12/17 01:37 10 ML Sodium Chloride 1,000 ml @ ud STK-MED ONCE .ROUTE 11/12/17 01:21 11/12/17 01:25 DC 11/12/17 01:37 999 MLS/HR Thiamine HCl 200 mg STK-MED ONCE .ROUTE 11/12/17 01:21 11/12/17 01:26 DC 11/12/17 01:37 200 MG Vital Signs/I&O Vital Sign - Last 12Hours 11/12/17 00:50 Temp 98.3 Pulse 132 Resp 20 B/P (MAP) 150/111 (124) Pulse Ox 92 O2 Delivery Room Air Progress Note #1: Time: 01:10 Progress Note Medical exam for alcohol intoxication. We'll obtain some urine and give him a banana bag. The patient last drink was tonight just prior to coming to the ER he is in no significant danger of delirium tremens today. We have discussed outpatient versus inpatient therapy options and he uses outpatient therapy never works for him and he would like to go inpatient in [facility]. He says he wants us to medically detox him until he is safe so he can fly back to [facility] and go to the inpatient alcohol treatment center. Patient has multiple ER contacts here for this exact problem where he wants to be inpatient detox 10 usually presents after having drank copious alcohol and has a fairly high alcohol level. Previous notes indicate the patient has been seen by Dr. Valencia in the hospital but never in follow-up. Apparently he never has been seen in the clinic by Dr. Valencia just in the hospital. The patient has indicated that he had 7 years of being alcohol free under the care of Dr. Valencia after a stent inpatient with [place] [facility]. If his alcohol levels are still high this may be a very good option for him as he is in no immediate danger withdrawing if he was still drinking tonight before coming into the ER. I'm advised that we do not have capacity for alcohol withdrawal inpatient tonight. We'll stabilize him and look for any other secondary reason for admission and if nothing is found he should be good to go home and contact the [place] [facility] in the morning, 11/13/17. Progress Note #2: Time: 02:06 Progress Note Patient's alcohol level was 317. EKG unremarkable. We'll give him a second IV fluids in addition to the banana bag and given about an hour total when his alcohol level below 300. No need to recheck. Since there is no pressing medical median he clearly has an alcohol level that is increased have with delirium tremens he would be reasonable to follow through with our initial plan to have him follow up outpatient tomorrow. He has a Primary care contact here in [facility] and he has had success at the [place], [place] alcohol treatment center. Although is a bit of a poor historian he seems also indicates there may be an [facility] [place] he would like to use. He says he has a brother who lives in [place] as well as he has a house in [place]. He is not describing any other concerning medical issue at this time. Progress Note #3: Time: 03:07 Progress Note Patient awakens easily and on serial examination. His mentation is improved a little. At this point is been here for 2 hours his blood alcohol level should' ve improved some. He is received 2 L of fluid and his examination and laboratory evaluation has been unremarkable for any other dangerous pathology other than moderate alcohol intoxication. He has a place he can stay at [address] [place] [address] in [facility]. ECG Initial ECG Impression Date: Nov 12, 2017 Initial ECG Impression Time: 01:09 Initial ECG Rate: 124 Initial ECG Rhythm: S.Tach Initial ECG Intervals: Normal Initial ECG Impression: Normal Initial ECG Comparisson: Unchanged Comment Sinus tachycardia without ST segment elevation or depression. Departure Impression Impression: Primary Impression: Chronic alcohol abuse Additional Impression: Alcohol intoxication Qualified Codes: F10.920 - Alcohol use, unspecified with intoxication, uncomplicated Disposition: 01 HOME, SELF-CARE Condition: Stable Departure-Patient Inst. Decision time for Depature: 03:09 Referrals: ASA VALENCIA DO (PCP/Family) Primary Care Physician Patient Instructions: Alcohol Abuse and Alcoholism (DC) Add. Discharge Instructions: NEED TO CALL THE AL[facility]HOL TREATMENT CENTER ([facility]C) IN [place] LATER THIS AM, 11/13/17 , TO ARRANGE TREATMENT. THEIR NUMBER IS [phone]. You can also contact Dr. VALENCIA's office at [phone] and requests an appointment for further support in your endeavor to quit drinking. Copy Copies To 1: ASA VALENCIA TITUS J Nov 12, 2017 01:10
[2017-11-12] MEDS ORDERED: THIAMINE 100 MG/ML 2 ML (VITAMIN B-1) VIAL ONE (01:21)
[2017-11-12] MEDS ORDERED: NS IV 1000 ML 1,000 ML ONE (01:21)
[2017-11-12] MEDS ORDERED: MAGNESIUM SULFATE 1 GM/2 ML VIAL ONE (01:21)
[2017-11-12] MEDS ORDERED: FOLIC ACID 1 MG/0.2 ML SYR (ED) ONE ×2 (01:21→02:36)
[2017-11-12] MEDS ORDERED: VITAMIN MULTI- 12 INJECTION 10 ML VIAL IV ONE (01:24)
[2017-11-12 01:28] LABS: BASOPHILS % (AUTO) 0 % (0-10); EOSINOPHILS # (AUTO) 0.3 10^3/uL (0.0-0.3); EOSINOPHILS % (AUTO) 2 % (0-10); HEMATOCRIT 44 % (40-54); HEMOGLOBIN 15.8 G/DL (13.3-17.7); LYMPHOCYTES # (AUTO) 7.2 X 10^3 (1.0-4.0); LYMPHOCYTES % (AUTO) 57 % (12-44); MEAN CORPUSCULAR HEMOGLOBIN 31 PG (25-34); MEAN CORPUSCULAR HGB CONC 36 G/DL (32-36); MEAN CORPUSCULAR VOLUME 87 FL (80-99); MEAN PLATELET VOLUME 10.5 FL (7.4-10.4); MONOCYTES # (AUTO) 0.6 X 10^3 (0.0-1.0); MONOCYTES % (AUTO) 5 % (0-12); NEUTROPHILS # (AUTO) 4.6 X 10^3 (1.8-7.8); NEUTROPHILS % (AUTO) 36 % (42-75); PLATELET COUNT 310 10^3/uL (130-400); RED BLOOD COUNT 5.05 10^6/uL (4.35-5.85); RED CELL DISTRIBUTION WIDTH 13.7 % (10.0-14.5); WHITE BLOOD COUNT 12.7 10^3/uL (4.3-11.0)
[2017-11-12 01:45] LABS: BILIRUBIN,URINE NEGATIVE (NEGATIVE); CLARITY,URINE CLEAR; COLOR,URINE YELLOW; GLUCOSE, URINE (UA) NEGATIVE (NEGATIVE); KETONES,URINE NEGATIVE (NEGATIVE); LEUKOCYTE ESTERASE ,URINE NEGATIVE (NEGATIVE); NITRITE,URINE NEGATIVE (NEGATIVE); PH,URINE 5 (5-9); PROTEIN,URINE NEGATIVE (NEGATIVE); UROBILINOGEN,URINE NORMAL (NORMAL)
[2017-11-12 01:49] LABS: ALANINE AMINOTRANSFERASE 27 U/L (0-55); ALBUMIN 4.4 GM/DL (3.2-4.5); ALKALINE PHOSPHATASE 108 U/L (40-136); BILIRUBIN,TOTAL 0.6 MG/DL (0.1-1.0); BUN/CREATININE RATIO 17; CALCIUM 8.8 MG/DL (8.5-10.1); CARBON DIOXIDE 21 MMOL/L (21-32); CHLORIDE 104 MMOL/L (98-107); CREATININE SERUM 0.78 MG/DL (0.60-1.30); GFR ESTIMATED > 60; GLUCOSE 100 MG/DL (70-105); MAGNESIUM 2.2 MG/DL (1.8-2.4); POTASSIUM 3.5 MMOL/L (3.6-5.0); SODIUM 139 MMOL/L (135-145); TOTAL PROTEIN 7.8 GM/DL (6.4-8.2)
[2017-11-12] MEDS ORDERED: D5 1/2 NS W/KCL 10 MEQ/L 1,000 ML IV STA (01:56)
[2017-11-12 02:00] LABS: AMPHETAMINE SCREEN, URINE NEGATIVE (NEGATIVE); BARBITURATE SCREEN URINE NEGATIVE (NEGATIVE); BENZODIAZEPINES SCREEN URINE NEGATIVE (NEGATIVE); CANNABINOID SCREEN, URINE NEGATIVE (NEGATIVE); COCAINE SCREEN URINE NEGATIVE (NEGATIVE); METHADONE STAT NEGATIVE (NEGATIVE); METHAMPHETAMINE SCREEN URINE S NEGATIVE (NEGATIVE); OPIATE SCREEN URINE NEGATIVE (NEGATIVE); OXYCODONE STAT NEGATIVE (NEGATIVE); PROPOXYPHENE STAT NEGATIVE (NEGATIVE); TRICYCLIC ANTIDEPRESSANTS SCRE NEGATIVE (NEGATIVE)
[2017-11-12 02:04] LABS: BACTERIA,URINE NEGATIVE /HPF; SQUAMOUS EPITHELIAL CELL,UR RARE /HPF
[2017-11-12] MEDS ORDERED: D5 1/2 NS W/KCL 20 MEQ/L 1,000 ML IV STA (02:24)
[2017-11-12 03:10] VITALS: BP 107/82
== END 2017-11-12 03:10 | disposition home or self-care (01) ==
LOC: EDUNIT# 00:44 → ER 00:47
DX: F10.129 Alcohol abuse with intoxication, unspecified (principal); F32.9 Major depressive disorder, single episode, unspecified; K21.9 Gastro-esophageal reflux disease without esophagitis; G40.909 Epilepsy, unspecified, not intractable, without status epilepticus; F17.210 Nicotine dependence, cigarettes, uncomplicated; Z88.6 Allergy status to analgesic agent; Z87.01 Personal history of pneumonia (recurrent)
CPT/HCPCS: 36415; 80053; 80306; 80320; 81000; 83735; 84484; 85025; 93005; 96360

== ENCOUNTER 2018-04-20 01:32 | Observation (INO) | payer SELFPAY ==
[~2018-04-20] VITALS: Ht 165.1 cm; Wt 98.4 kg
[2018-04-20] VITALS (18 sets, daily range): BP systolic 96–141; BP diastolic 68–97
[~2018-04-20 01:32] MED LIST changes: +HYDR25TA4 PO
[2018-04-20] MEDS ORDERED: PANTOPRAZOLE 40 MG (PROTONIX) VIAL IV STA (02:06)
[2018-04-20] MEDS ORDERED: LACTATED RINGERS 1,000 ML IV ONE (02:06)
[2018-04-20] MEDS ORDERED: ONDANSETRON 4 MG/2 ML (SDV) Z0FRAN IVP ONE (02:15)
[2018-04-20 02:46] LABS: BASOPHILS % (AUTO) 0 % (0-10); EOSINOPHILS # (AUTO) 0.2 10^3/uL (0.0-0.3); EOSINOPHILS % (AUTO) 2 % (0-10); HEMATOCRIT 43 % (40-54); HEMOGLOBIN 15.2 G/DL (13.3-17.7); LYMPHOCYTES # (AUTO) 3.7 X 10^3 (1.0-4.0); LYMPHOCYTES % (AUTO) 44 % (12-44); MEAN CORPUSCULAR HEMOGLOBIN 32 PG (25-34); MEAN CORPUSCULAR HGB CONC 35 G/DL (32-36); MEAN CORPUSCULAR VOLUME 90 FL (80-99); MEAN PLATELET VOLUME 10.6 FL (7.4-10.4); MONOCYTES # (AUTO) 0.5 X 10^3 (0.0-1.0); MONOCYTES % (AUTO) 5 % (0-12); NEUTROPHILS % (AUTO) 48 % (42-75); PLATELET COUNT 260 10^3/uL (130-400); RED BLOOD COUNT 4.81 10^6/uL (4.35-5.85); RED CELL DISTRIBUTION WIDTH 14.2 % (10.0-14.5); WHITE BLOOD COUNT 8.4 10^3/uL (4.3-11.0)
[2018-04-20 02:57] LABS: PROTHROMBIN TIME PATIENT 12.9 SEC (12.2-14.7)
[2018-04-20 03:04] LABS: BILIRUBIN,URINE NEGATIVE (NEGATIVE); CLARITY,URINE CLEAR; COLOR,URINE YELLOW; GLUCOSE, URINE (UA) NEGATIVE (NEGATIVE); KETONES,URINE NEGATIVE (NEGATIVE); LEUKOCYTE ESTERASE ,URINE NEGATIVE (NEGATIVE); NITRITE,URINE NEGATIVE (NEGATIVE); PH,URINE 5 (5-9); PROTEIN,URINE 1+ (NEGATIVE); UROBILINOGEN,URINE NORMAL (NORMAL)
[2018-04-20 03:06] LABS: ALANINE AMINOTRANSFERASE 28 U/L (0-55); ALBUMIN 4.4 GM/DL (3.2-4.5); ALKALINE PHOSPHATASE 88 U/L (40-136); AMYLASE 32 U/L (25-125); BILIRUBIN,TOTAL 0.5 MG/DL (0.1-1.0); BUN/CREATININE RATIO 12; CALCIUM 9.5 MG/DL (8.5-10.1); CARBON DIOXIDE 20 MMOL/L (21-32); CHLORIDE 103 MMOL/L (98-107); CREATININE SERUM 0.89 MG/DL (0.60-1.30); GFR ESTIMATED > 60; GLUCOSE 128 MG/DL (70-105); LIPASE 27 U/L (8-78); MAGNESIUM 2.3 MG/DL (1.8-2.4); POTASSIUM 3.7 MMOL/L (3.6-5.0); SALICYLATE < 5.0 MG/DL (5.0-20.0); SODIUM 137 MMOL/L (135-145); TOTAL PROTEIN 7.8 GM/DL (6.4-8.2)
[2018-04-20 03:09] LABS: ACETAMINOPHEN < 10 UG/ML (10-30)
[2018-04-20 03:12] LABS: BACTERIA,URINE NEGATIVE /HPF; SQUAMOUS EPITHELIAL CELL,UR RARE /HPF
[2018-04-20 03:13] LABS: AMPHETAMINE SCREEN, URINE NEGATIVE (NEGATIVE); BARBITURATE SCREEN URINE NEGATIVE (NEGATIVE); BENZODIAZEPINES SCREEN URINE POSITIVE (NEGATIVE); CANNABINOID SCREEN, URINE NEGATIVE (NEGATIVE); COCAINE SCREEN URINE NEGATIVE (NEGATIVE); METHAMPHETAMINE SCREEN URINE S NEGATIVE (NEGATIVE); OPIATE SCREEN URINE NEGATIVE (NEGATIVE); TRICYCLIC ANTIDEPRESSANTS SCRE NEGATIVE (NEGATIVE)
[2018-04-20 03:14] LABS: METHADONE STAT NEGATIVE (NEGATIVE); OXYCODONE STAT NEGATIVE (NEGATIVE); PROPOXYPHENE STAT NEGATIVE (NEGATIVE)
[2018-04-20 03:25] LABS: TSH (THYROID ANALYZER) 2.21 UIU/ML (0.35-4.94)
--- NOTE | 2018-04-20 04:12 | ED Psychosocial ---
General Chief Complaint: Substance Abuse Stated Complaint: ETOH,STS WANTS TO Nursing Triage Note: PT STATES THAT HE WANTS TO BECAUSE HE CANT STOP DRINKING. WANTS TO BE ADMITTED TO A PSYCH DEPARTMENT IN [place], [place]. STATED HE CALLED [facility] AND THEY SAID TO COME TO THE ER. Source: patient, old records Exam Limitations: intoxication History of Present Illness Date Seen by Provider: Apr 20, 2018 Time Seen by Provider: 02:06 Initial Comments PT ARRIVES VIA POV--STATES SOMEONE DROVE HIM HERE PT STATES HE IS HERE FOR "DETOX" STATES HE CALLED [facility] AND STATES "THEY TOLD ME TO COME HERE"--THIS WAS SEVERAL DAYS AGO, PER PT. GIVES NO EXPLANATION WHY HE DID NOT COME SOONER, OR WHY HE DIDN'T GO DIRECTLY TO [facility] PT STATES HE WANTS HELP TO STOP DRINKING PT ALSO STATES HE JUST WANTS TO STATES HIS PLAN IS TO DRINK HIMSELF TO AND OVERDOSE ON LIBRIUM, WHICH HE STATES HE HAS AT HOME, BUT HAS NOT BEEN TAKING SYMPTOMS ARE NO DIFFERENT TODAY IN ANY WAY PT STATES HE HAS FELT LIKE THIS FOR AT LEAST 3 YEARS PT HAS BEEN SEEN HERE 21 TIMES SINCE 2005 FOR THESE EXACT SAME COMPLAINTS PT HAS BEEN ADMITTED TO [facility] FOR ALCOHOL REHAB, WELL MULTIPLE PSYCH ADMITS PT CLAIMS HE HAS NEVER SEEN ANYONE FROM [facility] AFTER BEING DISMISSED FROM PSYCH UNIT. STATES HE HAS NOT SEEN ANYONE RECENTLY FOR THIS PROBLEM PT WAS ADMITTED HERE 02/10/18 FOR THIS AND WAS DISMISSED AND ARRANGEMENTS MADE FOR PT TO GO TO [facility], WHICH APPARENTLY PT DID NOT DO. PT STATES THAT HE HAS DRANK AT LEAST 2 CASES OF BEER TODAY--NO HARD LIQUOR PT STATES NORMALLY HE DRINKS AT LEAST 18 BEERS A DAY, AND CLAIMS NO HARD LIQUOR ( NO PRIOR VISIT, STATED THAT HE DRINKS A GALLON OF VODKA A DAY ) PT HAS HISTORY OF ALCOHOL WITHDRAWL SEIZURES AND DELIRIUM PCP: [facility], DR. Jaiden GALINDO Allergies and Home Medications Allergies Coded Allergies: codeine (Verified Allergy, Unknown, 09/23/05) Home Medications Hydrochlorothiazide 25 Mg Tablet, 25 MG PO DAILY, (Reported) Patient Home Medication List Home Medication List Reviewed: Yes Review of Systems Constitutional: no symptoms reported Respiratory: no symptoms reported Cardiovascular: no symptoms reported Gastrointestinal: vomiting (VOMITED PRIOR TO ARRIVAL. DENIES NAUSEA NOW. ) Psychiatric/Neurological: See HPI Past Ypszjou-Wreptq-Knwlgf Hx Patient Social History Alcohol Use: Regular Use (CLAIMS > 18 BEERS/DAY ON 04/20/18. HAS CLAIMED A GALLON OF VODKA/DAY ON PRIOR VISITS) Number of Drinks Today: 45 Alcohol Beverage of Choice: Beer, Vodka Recreational Drug Use: Yes (THC) Drug of Choice: THC Smoking Status: Current Everyday Smoker Type Used: Smokeless Tobacco 2nd Hand Smoke Exposure: Yes Recent Foreign Travel: No Contact w/Someone Who Travel: No Recent Infectious Disease Expo: No Recent Hopitalizations: No Physical Abuse: No Sexual Abuse: No Immunizations Up To Date Tetanus Booster (TDap): Less than 5yrs Date of Influenza Vaccine: May 18, 2016 Seasonal Allergies Seasonal Allergies: Yes Past Medical History Surgeries: Yes (COLONOSCOPY, LEFT EYE SURGERY FOR STRABISMUS AGE 4) Eye Surgery Respiratory: Yes Pneumonia Currently Using CPAP: No Currently Using BIPAP: No Cardiac: No Neurological: Yes (ALCOHOL WITHDRAWAL SEIZURES) Seizure Disorder Reproductive Disorders: No Sexually Transmitted Disease: No HIV/AIDS: No Genitourinary: No Gastrointestinal: Yes (HEPATOMEGALY) Gastroesophageal Reflux Musculoskeletal: No Endocrine: No HEENT: Yes (STRABISMUS EYE SURGERY AGE 4, WEARS GLASSES) Loss of Vision: Denies Hearing Impairment: Denies Cancer: No Psychosocial: Yes (ALCOHOLISM; SUICIDAL IDEATIONS) Depression Nursing Suicide Risk Score: 7 Nursing Suicide Risk Notes: PT PLACED IN SUICIDE PRECATIONS. DOCTOR NOTIFIED OF IDEATIONS. ALL BELONGINGS SECURED. ALL POTENTIAL HAZARDS IN ROOM LOCKED BEHIND GATE. Integumentary: No Blood Disorders: No Adverse Reaction/Blood Tranf: No Family Medical History Patient reports no known family medical history. No Pertinent Family Hx, Hypertension Physical Exam Vital Signs - First Documented 04/20/18 02:28 Temp 96.5 Pulse 114 Resp 14 B/P (MAP) 140/103 (115) Pulse Ox 92 Capillary Refill : Less Than 3 Seconds Height, Weight, BMI Height: 5'5.00" Weight: 220lbs. 5.0oz. [id number]; 35.8 BMI Method:Stated General Appearance: WD/WN, no apparent distress, other (SMILING, SPEECH SLIGHTLY SLURRED. DOES NOT APPEAR TO BE IN ANY DISCOMFORT OR DISTRESS. REEKS OF ALCOHOL. ) HEENT: PERRL/EOMI, other (VOMITUS AROUND MOUGH) Neck: normal inspection Respiratory: normal breath sounds, no respiratory distress, no accessory muscle use Cardiovascular: regular rate, rhythm, no edema, no murmur Gastrointestinal: normal bowel sounds, non tender, soft Extremities: normal inspection, no pedal edema, normal capillary refill Neurologic/Psychiatric: cruise consultant II-XII nml as tested, no motor/sensory deficits, alert, normal mood/affect, oriented x 3 (BUT POOR RECOLLECTION OF DAY'S EVENTS) Appearance/Memory: disheveled Behavior/Eye Contact: cooperative, good eye contact Thoughts/Hallucinations: normal thought pattern, no apparent hallucination Skin: normal color, warm/dry Progress/Results/Core Measures Results/Orders Lab Results Laboratory Tests Test 04/20/18 02:40 04/20/18 02:56 Range/Units White Blood Count 8.4 4.3-11.0 10^3/uL Red Blood Count 4.81 4.35-5.85 10^6/uL Hemoglobin 15.2 13.3-17.7 G/DL Hematocrit 43 40-54 % Mean Corpuscular Volume 90 80-99 FL Mean Corpuscular Hemoglobin 32 25-34 PG Mean Corpuscular Hemoglobin Concent 35 32-36 G/DL Red Cell Distribution Width 14.2 10.0-14.5 % Platelet Count 260 130-400 10^3/uL Mean Platelet Volume 10.6 H 7.4-10.4 FL Neutrophils (%) (Auto) 48 42-75 % Lymphocytes (%) (Auto) 44 12-44 % Monocytes (%) (Auto) 5 0-12 % Eosinophils (%) (Auto) 2 0-10 % Basophils (%) (Auto) 0 0-10 % Neutrophils # (Auto) 4.0 1.8-7.8 X 10^3 Lymphocytes # (Auto) 3.7 1.0-4.0 X 10^3 Monocytes # (Auto) 0.5 0.0-1.0 X 10^3 Eosinophils # (Auto) 0.2 0.0-0.3 10^3/uL Basophils # (Auto) 0.0 0.0-0.1 10^3/uL Prothrombin Time 12.9 12.2-14.7 SEC INR Comment 1.0 0.8-1.4 Activated Partial Thromboplast Time 25 24-35 SEC Sodium Level 137 135-145 MMOL/L Potassium Level 3.7 3.6-5.0 MMOL/L Chloride Level 103 98-107 MMOL/L Carbon Dioxide Level 20 L 21-32 MMOL/L Anion Gap 14 5-14 MMOL/L Blood Urea Nitrogen 11 7-18 MG/DL Creatinine 0.89 0.60-1.30 MG/DL Estimat Glomerular Filtration Rate > 60 BUN/Creatinine Ratio 12 Glucose Level 128 H 70-105 MG/DL Calcium Level 9.5 8.5-10.1 MG/DL Corrected Calcium 9.2 8.5-10.1 MG/DL Magnesium Level 2.3 1.8-2.4 MG/DL Total Bilirubin 0.5 0.1-1.0 MG/DL Aspartate Amino Transf (AST/SGOT) 40 H 5-34 U/L Alanine Aminotransferase (ALT/SGPT) 28 0-55 U/L Alkaline Phosphatase 88 40-136 U/L Total Protein 7.8 6.4-8.2 GM/DL Albumin 4.4 3.2-4.5 GM/DL Amylase Level 32 25-125 U/L Lipase 27 8-78 U/L TSH [place] Testing 2.21 0.35-4.94 UIU/ML Salicylates Level < 5.0 L 5.0-20.0 MG/DL Acetaminophen Level < 10 L 10-30 UG/ML Serum Alcohol 259 H <10 MG/DL Urine Color YELLOW Urine Clarity CLEAR Urine pH 5 5-9 Urine Specific [place] 1.030 H 1.016-1.022 Urine Protein 1+ H NEGATIVE Urine Glucose (UA) NEGATIVE NEGATIVE Urine Ketones NEGATIVE NEGATIVE Urine Nitrite NEGATIVE NEGATIVE Urine Bilirubin NEGATIVE NEGATIVE Urine Urobilinogen NORMAL NORMAL MG/DL Urine Leukocyte Esterase NEGATIVE NEGATIVE Urine RBC (Auto) NEGATIVE NEGATIVE Urine RBC NONE /HPF Urine WBC NONE /HPF Urine Squamous Epithelial Cells RARE /HPF Urine Crystals NONE /LPF Urine Bacteria NEGATIVE /HPF Urine Casts PRESENT /LPF Urine Hyaline Casts 2-5 H /LPF Urine Mucus MODERATE H /LPF Urine Culture Indicated NO Urine Opiates Screen NEGATIVE NEGATIVE Urine Oxycodone Screen NEGATIVE NEGATIVE Urine Methadone Screen NEGATIVE NEGATIVE Urine Propoxyphene Screen NEGATIVE NEGATIVE Urine Barbiturates Screen NEGATIVE NEGATIVE Ur Tricyclic Antidepressants Screen NEGATIVE NEGATIVE Urine Phencyclidine Screen NEGATIVE NEGATIVE Urine Amphetamines Screen NEGATIVE NEGATIVE Urine Methamphetamines Screen NEGATIVE NEGATIVE Urine Benzodiazepines Screen POSITIVE H NEGATIVE Urine Cocaine Screen NEGATIVE NEGATIVE Urine Cannabinoids Screen NEGATIVE NEGATIVE My Orders Orders - EDITH ALMEIDA DO O2 (04/20/18 02:06) Ua Culture If Indicated (04/20/18 02:06) Thyroid Analyzer (04/20/18 02:06) Drug Screen Stat (Urine) (04/20/18 02:06) Cbc With Automated Diff (04/20/18 02:06) Comprehensive Metabolic Panel (04/20/18 02:06) Amylase (04/20/18 02:06) Alcohol (04/20/18 02:06) Acetaminophen (04/20/18 02:06) Salicylate (04/20/18 02:06) Ekg Tracing (04/20/18 02:06) Monitor-Rhythm Ecg Trace Only (04/20/18 02:06) Lipase (04/20/18 02:06) Magnesium (04/20/18 02:06) Protime With Inr (04/20/18 02:06) Partial Thromboplastin Time (04/20/18 02:06) Saline Lock/Iv-Start (04/20/18 02:06) Lactated Ringers (Lr 1000 Ml Iv Solution (04/20/18 02:06) Ondansetron Injection (Zofran Injectio (04/20/18 02:15) Pantoprazole Injection (Protonix Injecti (04/20/18 02:06) Medications Given in ED Current Medications Medications Dose Ordered Sig/Yadira Route Start Time Stop Time Status Last Admin Dose Admin Lactated Ringer's 1,000 ml @ 0 mls/hr Q0M ONCE IV 04/20/18 02:06 04/20/18 02:09 DC 04/20/18 02:50 1,000 MLS/HR Ondansetron HCl 8 mg ONCE ONCE IVP 04/20/18 02:15 04/20/18 02:16 DC 04/20/18 02:50 8 MG Vital Signs/I&O 04/20/18 02:28 Temp 96.5 Pulse 114 Resp 14 B/P (MAP) 140/103 (115) Pulse Ox 92 Blood Pressure Mean: 115 Progress Progress Note : Progress Note 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 DENISE, ACCEPTS PT FOR ADMIT Impression Primary Impression: Alcohol intoxication in active alcoholic Additional Impression: Suicidal ideation Disposition: ADMITTED INPATIENT Condition: Stable Admissions Decision to Admit Reason: Admit from ER (General) Decision to Admit/Date: Apr 20, 2018 Time/Decision to Admit Time: 03:05 Departure-Patient Inst. Referrals: JOSLYN GALINDO MD (PCP/Family) Primary Care Physician Patient Instructions: ALCOHOL AND SUBSTANCE ABUSE EDITH ALMEIDA DO Apr 20, 2018 04:12
[2018-04-20] MEDS ORDERED: ACETAMINOPHEN 325 MG TABLET ONE (06:48)
[2018-04-20] MEDS ORDERED: D5 1/2 NS W/KCL 20 MEQ/L 1,000 ML IV ONE (06:48)
[2018-04-20] MEDS ORDERED: D5 1/2 NS W/KCL 20 MEQ/L 1,000 ML IV SCH (07:00)
[2018-04-20] MEDS ORDERED: ACETAMINOPHEN 325 MG TABLET PO ONE (07:00)
[2018-04-20] MEDS ORDERED: ONDANSETRON 4 MG/2 ML (SDV) Z0FRAN IVP PRN (09:15)
[2018-04-20] MEDS ORDERED: 1/2 NS IV SOLUTION 1,000 ML IV PRN (09:26)
[2018-04-20] MEDS ORDERED: LORazepam INJ 2 MG/ML (ATIVAN) VIAL IM/IV PRN (09:30)
[2018-04-20] MEDS ORDERED: D5 1/2 NS 1000 ML IV SOLUTION 1,000 ML IV PRN (09:30)
[2018-04-20] MEDS ORDERED: LORazepam INJ 2 MG/ML (ATIVAN) VIAL IV PRN (09:30)
[2018-04-20] MEDS ORDERED: ONDANSETRON 4 MG (ZOFRAN) ORAL DISSOLVE TAB SL PRN (09:30)
[2018-04-20] MEDS ORDERED: LORazepam 1 MG (ATIVAN) TAB PO PRN (09:30)
[2018-04-20] MEDS ORDERED: ANTACID SUSP 30 ML UDC (MYLANTA) PO PRN (09:30)
[2018-04-20] MEDS ORDERED: SENNA W/DOCUSATE (SENOKOT S) TABLET PO PRN (09:30)
[2018-04-20] MEDS: THIAMINE INJECTION 100 MG, FOLIC ACID INJECTION 1 MG, VITAMIN MULTI INJECTION 10 ML, MA... IV SCH ×5 (09:34)
--- NOTE | 2018-04-20 09:51 | History & Physicial (CHS) ---
HPI History of Present Illness: 47 year old male with long history of alcohol abuse presented to ED in the early hours of the morning requesting detox and admission to inpatient psych at [facility]. He reportedly told ED staff that he was going to kill himself by overdosing on Librium and alcohol. He reported to them that he had consumed 2 cases of beer over the course of Saturday up to the time of his arrival, which was around 0200. Per chart review, the patient drinks beer and vodka, anywhere from 18 beers per day to up to a gallon of vodka. He has had multiple hospital admissions for both ETOH abuse as well as suicidal ideation. His most recent admission appears to be at [facility] on 02/11/2018 for ETOH detox; at discharge he was seen at [facility] for ATS and it was determined that he needed inpatient treatment and he was immediately transferred to [facility] for inpatient treatment of his ETOH abuse. His PCP is Dr. Valencia; reports of his PCP being Dr. Alfonso Galindo are incorrect - she saw him for a work physical only ; his primary provider of record is Dr. Valencia. When seen at the time of exam, patient states that he saw Dr. Galindo once, and she said that she would be his doctor. He states he is no longer seeing Dr. Valencia. UDS on admission positive for benzos, KTRACS checked, patient received rx for chlordiazepoxide #20 from [facility] in [place], which he filled on 04/14/18. This makes his UDS appropriate. He reports that he no longer wants to kill himself, that he only feels that way when he drinks. He states he is interested in inpatient treatment for his depression and his alcohol abuse. He states that he drinks between a six pack and a case of beer a day, it just depends. He would like to seeing Dr. Galindo, so we will make arrangements for him to establish care with her after discharge. Source: patient, RN/MD, RN notes reviewed, old records Exam Limitations: intoxication Date seen by provider: Apr 20, 2018 Time Seen by Provider: 10:30 Attending Physician Jaleesa Hoover DO PCP Dr. Valencia Consult Date of Admission Apr 20, 2018 at 03:05 Home Medications Home Medications Reviewed patient Home Medication Reconciliation performed by pharmacy medication reconciliations pharmacy order entry technician and/or nursing. Patients Allergies have been reviewed. Allergies Coded Allergies: codeine (Verified Allergy, Unknown, 09/23/05) MER-Ukpdqn-Bcyqfj Hx Patient Social History Living Status: lives independently Alcohol Use: Regular Use Recreational Drug Use: Yes (THC) Drug of Choice: THC Smoking Status: Current Everyday Smoker Type Used: Smokeless Tobacco 2nd Hand Smoke Exposure: Yes Recent Foreign Travel: No Contact w/other who traveled: No Recent Hopitalizations: No Recent Infectious Disease Expo: No Physical Abuse Screen: No Sexual Abuse: No Immunizations Up To Date Tetanus Booster (TDap): Less than 5yrs Date of Influenza Vaccine: May 18, 2016 Past Medical History HTN Alcohol Syndrome Alcohol Abuse Hx Alcohol Withdrawal Seizures THC Abuse Tobacco Abuse Family Medical History Significant Family History: Cancer, Hypertension, Psychiatric Problems ( alcohol abuse) Family History: Patient reports no known family medical history. Review of Systems (CHC) Constitutional: see HPI EENTM: no symptoms reported Respiratory: no symptoms reported Cardiovascular: no symptoms reported Gastrointestinal: no symptoms reported Genitourinary: no symptoms reported Musculoskeletal: no symptoms reported Skin: no symptoms reported Psychiatric/Neurological: See HPI, Depressed, Emotional Problems Reviewed Test Results Reviewed Test Results Lab Laboratory Tests Test 04/20/18 02:40 04/20/18 02:56 Range/Units White Blood Count 8.4 4.3-11.0 10^3/uL Red Blood Count 4.81 4.35-5.85 10^6/uL Hemoglobin 15.2 13.3-17.7 G/DL Hematocrit 43 40-54 % Mean Corpuscular Volume 90 80-99 FL Mean Corpuscular Hemoglobin 32 25-34 PG Mean Corpuscular Hemoglobin Concent 35 32-36 G/DL Red Cell Distribution Width 14.2 10.0-14.5 % Platelet Count 260 130-400 10^3/uL Mean Platelet Volume 10.6 H 7.4-10.4 FL Neutrophils (%) (Auto) 48 42-75 % Lymphocytes (%) (Auto) 44 12-44 % Monocytes (%) (Auto) 5 0-12 % Eosinophils (%) (Auto) 2 0-10 % Basophils (%) (Auto) 0 0-10 % Neutrophils # (Auto) 4.0 1.8-7.8 X 10^3 Lymphocytes # (Auto) 3.7 1.0-4.0 X 10^3 Monocytes # (Auto) 0.5 0.0-1.0 X 10^3 Eosinophils # (Auto) 0.2 0.0-0.3 10^3/uL Basophils # (Auto) 0.0 0.0-0.1 10^3/uL Prothrombin Time 12.9 12.2-14.7 SEC INR Comment 1.0 0.8-1.4 Activated Partial Thromboplast Time 25 24-35 SEC Sodium Level 137 135-145 MMOL/L Potassium Level 3.7 3.6-5.0 MMOL/L Chloride Level 103 98-107 MMOL/L Carbon Dioxide Level 20 L 21-32 MMOL/L Anion Gap 14 5-14 MMOL/L Blood Urea Nitrogen 11 7-18 MG/DL Creatinine 0.89 0.60-1.30 MG/DL Estimat Glomerular Filtration Rate > 60 BUN/Creatinine Ratio 12 Glucose Level 128 H 70-105 MG/DL Calcium Level 9.5 8.5-10.1 MG/DL Corrected Calcium 9.2 8.5-10.1 MG/DL Magnesium Level 2.3 1.8-2.4 MG/DL Total Bilirubin 0.5 0.1-1.0 MG/DL Aspartate Amino Transf (AST/SGOT) 40 H 5-34 U/L Alanine Aminotransferase (ALT/SGPT) 28 0-55 U/L Alkaline Phosphatase 88 40-136 U/L Total Protein 7.8 6.4-8.2 GM/DL Albumin 4.4 3.2-4.5 GM/DL Amylase Level 32 25-125 U/L Lipase 27 8-78 U/L TSH [place] Testing 2.21 0.35-4.94 UIU/ML Salicylates Level < 5.0 L 5.0-20.0 MG/DL Acetaminophen Level < 10 L 10-30 UG/ML Serum Alcohol 259 H <10 MG/DL Urine Color YELLOW Urine Clarity CLEAR Urine pH 5 5-9 Urine Specific [place] 1.030 H 1.016-1.022 Urine Protein 1+ H NEGATIVE Urine Glucose (UA) NEGATIVE NEGATIVE Urine Ketones NEGATIVE NEGATIVE Urine Nitrite NEGATIVE NEGATIVE Urine Bilirubin NEGATIVE NEGATIVE Urine Urobilinogen NORMAL NORMAL MG/DL Urine Leukocyte Esterase NEGATIVE NEGATIVE Urine RBC (Auto) NEGATIVE NEGATIVE Urine RBC NONE /HPF Urine WBC NONE /HPF Urine Squamous Epithelial Cells RARE /HPF Urine Crystals NONE /LPF Urine Bacteria NEGATIVE /HPF Urine Casts PRESENT /LPF Urine Hyaline Casts 2-5 H /LPF Urine Mucus MODERATE H /LPF Urine Culture Indicated NO Urine Opiates Screen NEGATIVE NEGATIVE Urine Oxycodone Screen NEGATIVE NEGATIVE Urine Methadone Screen NEGATIVE NEGATIVE Urine Propoxyphene Screen NEGATIVE NEGATIVE Urine Barbiturates Screen NEGATIVE NEGATIVE Ur Tricyclic Antidepressants Screen NEGATIVE NEGATIVE Urine Phencyclidine Screen NEGATIVE NEGATIVE Urine Amphetamines Screen NEGATIVE NEGATIVE Urine Methamphetamines Screen NEGATIVE NEGATIVE Urine Benzodiazepines Screen POSITIVE H NEGATIVE Urine Cocaine Screen NEGATIVE NEGATIVE Urine Cannabinoids Screen NEGATIVE NEGATIVE Physical Exam-(CHC) Physical Exam Vital Signs VS - Last 72 Hours, by Label 04/20/18 04/20/18 04/20/18 04/20/18 02:28 06:00 06:06 06:11 Temp 96.5 97.6 Pulse 114 112 100 98 Resp 14 12 15 B/P (MAP) 140/103 (115) 130/98 120/97 (105) Pulse Ox 92 94 92 O2 Delivery Room Air 04/20/18 04/20/18 04/20/18 04/20/18 06:24 06:30 06:45 07:00 Pulse 99 95 93 Resp 17 17 16 B/P (MAP) 119/86 (97) 114/87 (96) 116/74 (88) Pulse Ox 94 92 90 92 O2 Delivery Room Air Room Air Room Air Nasal Cannula O2 Flow Rate 2.00 04/20/18 04/20/18 04/20/18 04/20/18 07:00 07:25 08:00 08:00 Temp 97.5 Pulse 93 94 Resp 13 B/P (MAP) 96/68 (77) Pulse Ox 96 O2 Delivery Nasal Cannula Nasal Cannula O2 Flow Rate 2.00 2.00 04/20/18 04/20/18 04/20/18 04/20/18 09:00 10:00 11:00 12:00 Pulse 99 93 98 Resp 13 13 14 B/P (MAP) 115/88 (97) 112/78 (89) 105/70 (82) Pulse Ox 94 96 93 O2 Delivery Nasal Cannula Nasal Cannula Nasal Cannula Nasal Cannula O2 Flow Rate 2.00 2.00 2.00 2.00 04/20/18 04/20/18 04/20/18 04/20/18 12:00 12:00 13:00 13:00 Temp 97.4 Pulse 101 102 102 Resp 15 15 B/P (MAP) 105/77 (86) 96/79 (85) Pulse Ox 93 94 O2 Delivery Nasal Cannula Nasal Cannula O2 Flow Rate 2.00 2.00 04/20/18 04/20/18 04/20/18 04/20/18 14:00 15:00 16:00 16:00 Pulse 102 101 105 Resp 17 17 23 B/P (MAP) 129/88 (102) 123/80 (94) 117/78 (91) Pulse Ox 94 92 96 O2 Delivery Nasal Cannula Nasal Cannula Nasal Cannula Nasal Cannula O2 Flow Rate 2.00 2.00 2.00 2.00 Capillary Refill : Less Than 3 Seconds General Appearance: WD/WN, no apparent distress Eyes: Bilateral Eye Normal Inspection, Bilateral Eye EOMI HEENT: normal ENT inspection; No scleral icterus (R), No scleral icterus (L), No photophobia Neck: non-tender, full range of motion, supple, normal inspection Respiratory: chest non-tender, no respiratory distress, no accessory muscle use , decreased breath sounds Cardiovascular: normal peripheral pulses, regular rate, rhythm, no edema, no gallop Peripheral Pulses: 2+ Radial Pulses (R), 2+ Radial Pulses (L) Gastrointestinal: normal bowel sounds, non tender, soft, no pulsatile mass; No guarding, No rebound Rectal: deferred Extremities: normal range of motion, non-tender, no calf tenderness, normal capillary refill Neurologic/Psychiatric: specimen accessioner II-XII nml as tested, no motor/sensory deficits, alert, normal mood/affect, oriented x 3 Skin: normal color, warm/dry Assessment/Plan Assessment/Plan Admission Dx Alcohol Intoxication Alcohol Abuse Suicidal Ideation Hypertension Tobacco Abuse Pre-diabetes Alcohol Syndrome Admission Status: Observation (1) Alcohol intoxication Status: Acute Assessment & Plan: 04/19 -BAL at 0240 259 -known chronic alcoholic -will place on [facility] protocol; scheduled ativan as pt reports history of ETOH withdrawal seizures -recheck BAL this AM -pt desires detox and inpatient treatment for alcohol abuse and suicidal ideation, will consult behavioral health -patient reports he is interested in inpatient treatment Qualifiers: Qualified Codes: F10.920 - Alcohol use, unspecified with intoxication, uncomplicated (2) Chronic alcohol abuse Status: Chronic (3) alcohol spectrum disorder Status: Chronic (4) Suicidal ideation Status: Acute Assessment & Plan: 04/19 -pt reported to ED staff that he was going to kill himself by overdosing on Librium and alcohol because he could not stop drinking -when asked this AM about suicide, patient denies suicidal ideation to nursing staff in the ICU -pt also denied current suicidal ideation at the time of exam, and states he only feels that way when he drinks (5) Hypertension Status: Chronic Assessment & Plan: documented in pt's history when he was seen for work physical Qualifiers: Qualified Codes: I10 - Essential (primary) hypertension (6) DVT prophylaxis Status: Acute Assessment & Plan: Lovenox 40 mg Q24H Clinical Quality Measures DVT/VTE Risk/Contraindication: Risk Factor Score Per Nursin RFS Level Per Nursing on Admit: 2=Moderate Copy Copies To 1: ASA VALENCIA DO; JOSLYN GALINDO MD, MARGARET E DO Apr 20, 2018 09:51
[2018-04-20] MEDS: LORazepam 1 MG (ATIVAN) TAB PO SCH ×4 (10:08→20:39)
[2018-04-20] MEDS: ENOXAPARIN 40 MG/0.4 ML (LOVENOX) SYR SC SCH (10:08)
[2018-04-20] MEDS: D5 1/2 NS W/KCL 20 MEQ/L 1,000 ML IV SCH (17:17)
[2018-04-21] VITALS (17 sets, daily range): BP systolic 97–153; BP diastolic 58–102
[2018-04-21] MEDS: LORazepam 1 MG (ATIVAN) TAB PO SCH ×4 (00:50→13:05)
[2018-04-21] MEDS: D5 1/2 NS W/KCL 20 MEQ/L 1,000 ML IV SCH ×2 (02:50→06:44)
[2018-04-21 03:27] LABS: BASOPHILS % (AUTO) 0 % (0-10); EOSINOPHILS # (AUTO) 0.1 10^3/uL (0.0-0.3); EOSINOPHILS % (AUTO) 2 % (0-10); HEMATOCRIT 38 % (40-54); HEMOGLOBIN 13.3 G/DL (13.3-17.7); LYMPHOCYTES # (AUTO) 3.2 X 10^3 (1.0-4.0); LYMPHOCYTES % (AUTO) 39 % (12-44); MEAN CORPUSCULAR HEMOGLOBIN 32 PG (25-34); MEAN CORPUSCULAR HGB CONC 35 G/DL (32-36); MEAN CORPUSCULAR VOLUME 93 FL (80-99); MEAN PLATELET VOLUME 10.7 FL (7.4-10.4); MONOCYTES # (AUTO) 0.6 X 10^3 (0.0-1.0); MONOCYTES % (AUTO) 7 % (0-12); NEUTROPHILS # (AUTO) 4.1 X 10^3 (1.8-7.8); NEUTROPHILS % (AUTO) 52 % (42-75); PLATELET COUNT 206 10^3/uL (130-400); RED BLOOD COUNT 4.14 10^6/uL (4.35-5.85); RED CELL DISTRIBUTION WIDTH 14.4 % (10.0-14.5)
[2018-04-21 03:52] LABS: BUN/CREATININE RATIO 15; CALCIUM 8.7 MG/DL (8.5-10.1); CARBON DIOXIDE 20 MMOL/L (21-32); CHLORIDE 109 MMOL/L (98-107); CREATININE SERUM 0.88 MG/DL (0.60-1.30); GFR ESTIMATED > 60; GLUCOSE 133 MG/DL (70-105); MAGNESIUM 2.2 MG/DL (1.8-2.4); PHOSPHORUS 2.4 MG/DL (2.3-4.7); POTASSIUM 4.1 MMOL/L (3.6-5.0); SODIUM 140 MMOL/L (135-145)
[2018-04-21] MEDS ORDERED: MAGNESIUM 1 GM/100 ML IVPB 100 ML IV SCH (06:00)
[2018-04-21] MEDS ORDERED: POTASSIUM CL 10MEQ/50ML IVPB 50 ML IV SCH (06:00)
[2018-04-21] MEDS ORDERED: KCL 20 MEQ TAB (K-DUR) PO SCH (06:00)
[2018-04-21] MEDS: THIAMINE INJECTION 100 MG, FOLIC ACID INJECTION 1 MG, VITAMIN MULTI INJECTION 10 ML, MA... IV SCH ×5 (09:54)
[2018-04-21] MEDS: ENOXAPARIN 40 MG/0.4 ML (LOVENOX) SYR SC SCH (09:55)
--- NOTE | 2018-04-21 16:32 | Discharge Summary ---
Diagnosis/Chief Complaint Date of Admission Apr 20, 2018 at 03:05 Date of Discharge 04/21/18 Admission Diagnosis Admission Diagnosis Alcohol Intoxication Alcohol Abuse Suicidal Ideation Hypertension Tobacco Abuse Pre-diabetes Alcohol Syndrome Discharge Diagnosis (1) Alcohol intoxication Status: Acute Assessment & Plan: 04/19 -BAL at 0240 259 -known chronic alcoholic -will place on CIWA protocol; scheduled ativan as pt reports history of ETOH withdrawal seizures -recheck BAL this AM -pt desires detox and inpatient treatment for alcohol abuse and suicidal ideation, will consult behavioral health -patient reports he is interested in inpatient treatment 04/21 -BAL <10 -intoxication resolved -[facility] contacted as patient stated he was still interested in talking with them; they spoke with the patient on the phone briefly and the patient reported he would like to do inpatient psych care, but only at a facility no more than 60 minutes away, they recommended nursing staff attempt to find placement as it is a holiday and there is no social services technician today -when there were no beds available within pt's radius he was willing to go, [facility] was again contacted and spoke with patient, and stated that patient could be discharged home with instructions to contact them tomorrow for evaluation -patient has denied suicidal ideation since arrival to the ICU, and continues to deny suicidal thoughts/feelings/intent at this time -patient has not displayed any signs of withdrawal and not required any ativan per CIWA scoring over the scheduled dose based on pt's reported history of withdrawal seizures -we will discharge patient to home with instructions to follow up with [facility] tomorrow and an appointment to establish care with Dr. Galindo on Apr 28 Qualifiers: Qualified Codes: F10.920 - Alcohol use, unspecified with intoxication, uncomplicated (2) Chronic alcohol abuse Status: Chronic (3) alcohol spectrum disorder Status: Chronic (4) Suicidal ideation Status: Acute Assessment & Plan: 04/19 -pt reported to ED staff that he was going to kill himself by overdosing on Librium and alcohol because he could not stop drinking -when asked this AM about suicide, patient denies suicidal ideation to nursing staff in the ICU -pt also denied current suicidal ideation at the time of exam, and states he only feels that way when he drinks 04/21 -pt again denies any suicidal thoughts/feelings/plans when asked -he is interested in inpatient psych, but only to stop drinking, he states he is not suicidal unless he is drinking -[facility] was contacted, as outlined above, with the results as outlined above -patient is not currently, nor has he been since arrival on the unit, expressing any suicidal ideation and at the time of decision to discharge denies any such thoughts/feelings/plans -patient to follow up with [facility] tomorrow (5) Hypertension Status: Chronic Assessment & Plan: documented in pt's history when he was seen for work physical Qualifiers: Qualified Codes: I10 - Essential (primary) hypertension (6) DVT prophylaxis Status: Acute Assessment & Plan: Lovenox 40 mg Q24H Pt expressed interest in inpatient psych, he would like to go to [facility]; he was willing to go to another facility, but only one that was within 30-60 minutes of [place]. None of the facilities in this radius had availability today, and when [facility] was contacted again regarding plan for patient, it was determined the patient was safe for discharge and outpatient follow up tomorrow. He is to call [facility] in the morning, and an appointment to establish care with Dr. Galindo has been made for him on Apr 28. Chief Complaint/HPI Chief Complaint/HPI 47 year old male with long history of alcohol abuse presented to ED in the early hours of the morning requesting detox and admission to inpatient psych at [facility]. He reportedly told ED staff that he was going to kill himself by overdosing on Librium and alcohol. He reported to them that he had consumed 2 cases of beer over the course of Saturday up to the time of his arrival, which was around 0200. Per chart review, the patient drinks beer and vodka, anywhere from 18 beers per day to up to a gallon of vodka. He has had multiple hospital admissions for both ETOH abuse as well as suicidal ideation. His most recent admission appears to be at [facility] on 02/11/2018 for ETOH detox; at discharge he was seen at [facility] for ATS and it was determined that he needed inpatient treatment and he was immediately transferred to [facility] for inpatient treatment of his ETOH abuse. His PCP is Dr. Valencia; reports of his PCP being Dr. Alfonso Galindo are incorrect - she saw him for a work physical only ; his primary provider of record is Dr. Valencia. When seen at the time of exam, patient states that he saw Dr. Galindo once, and she said that she would be his doctor. He states he is no longer seeing Dr. Valencia. UDS on admission positive for benzos, [facility] checked, patient received rx for chlordiazepoxide #20 from [facility] in [place], which he filled on 04/14/18. This makes his UDS appropriate. He reports that he no longer wants to kill himself, that he only feels that way when he drinks. He states he is interested in inpatient treatment for his depression and his alcohol abuse. He states that he drinks between a six pack and a case of beer a day, it just depends. He would like to seeing Dr. Galindo, so we will make arrangements for him to establish care with her after discharge. Discharge Summary-OBS Procedures None. Consultations Discharge Physical Examination Allergies: Coded Allergies: codeine (Verified Allergy, Unknown, 09/23/05) Vitals & I&Os Intake and Output 04/21/18 00:00 Intake Total 1625.2 ml Output Total 775 ml Balance 850.2 ml Vital Sign - Last 12Hours Date Time Temp Pulse Resp B/P (MAP) Pulse Ox O2 Delivery O2 Flow Rate FiO2 04/21/18 16:00 91 16 130/95 (107) 93 Room Air 04/21/18 12:00 98.3 04/21/18 12:00 General Appearance: Alert, Oriented X3, Cooperative HEENT: Atraumatic, EOMI, Mucous Memb Moist/[place] Respiratory: Normal Air Movement Cardiovascular: Regular Rate, Normal S1, Normal S2 Abdominal: Normal Bowel Sounds, Soft, No Tenderness, No Masses Extremities: No Cyanosis, No Edema, No Tenderness/Swelling Skin: No Rashes, No Significant Lesion Neuro: Normal Gait, Normal Speech, Normal Tone, Sensation Intact, Cranial Nerves 3-12 NL Psych/Mental Status: Mental Status NL, Mood NL Hospital Course see final discharge diagnosis Labs Laboratory Tests 04/21/18 03:15: White Blood Count 8.0, Red Blood Count 4.14L, Hemoglobin 13.3, Hematocrit 38L, Mean Corpuscular Volume 93, Mean Corpuscular Hemoglobin 32, Mean Corpuscular Hemoglobin Concent 35, Red Cell Distribution Width 14.4, Platelet Count 206, Mean Platelet Volume 10.7H, Neutrophils (%) (Auto) 52, Lymphocytes (%) (Auto) 39 , Monocytes (%) (Auto) 7, Eosinophils (%) (Auto) 2, Basophils (%) (Auto) 0, Neutrophils # (Auto) 4.1, Lymphocytes # (Auto) 3.2, Monocytes # (Auto) 0.6, Eosinophils # (Auto) 0.1, Basophils # (Auto) 0.0, Sodium Level 140, Potassium Level 4.1, Chloride Level 109H, Carbon Dioxide Level 20L, Anion Gap 11, Blood Urea Nitrogen 13, Creatinine 0.88, Estimat Glomerular Filtration Rate > 60, BUN/ Creatinine Ratio 15, Glucose Level 133H, Calcium Level 8.7, Phosphorus Level 2.4 , Magnesium Level 2.2, Serum Alcohol < 10 Microbiology 04/20/18 MRSA Screen - Final, Complete MRSA not isolated Discharge Condition at discharge stable. no signs of alcohol withdrawal during hospitalization and patient actively denies any suicidal thoughts/feelings/plans Instructions to patient/family Please see electronic discharge instructions given to patient. Discharge Medications Reviewed and agree with Discharge Medication list on patient's Discharge Instruction sheet Clinical Quality Measures DVT/VTE Risk/Contraindication: Risk Factor Score Per Nursin RFS Level Per Nursing on Admit: 2=Moderate Copy Copies To 1: ASA VALENCIA DO; JOSLYN GALINDO MD, MARGARET E DO Apr 21, 2018 16:32
--- NOTE | 2018-04-21 16:41 | Discharge Instructions ---
Discharge [facility] Discharge Medications New, Converted or Re-Newed RX: Other (no medication changes) Continued Medications: Hydrochlorothiazide (Hydrochlorothiazide) 25 Mg Tablet 25 MG PO DAILY, TAB Patient Instructions Patient Instructions -avoid all alcohol -keep appt with Dr. Galindo to establish care as scheduled -call [facility] in AM for follow up Goal/Follow Up Appt: Dr. Galindo, Apr 28 at 11:20 to establish care Call [facility] in AM for follow up Return to The Hospital For: chest pain or pressure, shortness of breath, nausea or vomiting that makes you unable to keep down clear liquids or medications and lasts longer than 24 hours, severe pain uncontrolled by medication, if directed by hydroponics worker provider, or with any other complaints or concerns Activity & Diet Discharge Diet: Low Sodium Diet Activity as Tolerated: Yes Orders-Post D/C & Referrals Pneu Vac Indicated: Yes Copy Copies To 1: JOSLYN GALINDO MD, MARGARET E DO Apr 21, 2018 16:41
== END 2018-04-21 16:35 | disposition home or self-care (01) ==
LOC: EDUNIT# 01:32 → ER 01:34 → ICU 03:05 → UNDOADMOB 03:05 → ICU 06:00 → UNDODISOB 04-21 17:25
PROVIDERS: ADMIT Family Medicine; ATTEND Family Medicine
DX: F10.220 Alcohol dependence with intoxication, uncomplicated (principal); Y90.8 Blood alcohol level of 240 mg/100 ml or more; R45.851 Suicidal ideations; F32.9 Major depressive disorder, single episode, unspecified; I10 Essential (primary) hypertension; R73.03 Prediabetes; K21.9 Gastro-esophageal reflux disease without esophagitis; F17.220 Nicotine dependence, chewing tobacco, uncomplicated
CPT/HCPCS: 36415; 80048; 80053; 80306; 80320; 80329; 81000; 82150; 83690; 83735; 84100; 84443; 85025; 85610; 85730; 87081; 93005; 93041; 94760; 96361; 96374; 96375; G0378

== ENCOUNTER 2018-04-22 19:24 | Observation (INO) | payer SELFPAY ==
[~2018-04-22] VITALS: Ht 165.1 cm; Wt 98.9 kg
[2018-04-22] MEDS: NS IV 1000 ML 1,000 ML IV ONE ×2 (09:46→21:46)
[2018-04-22 20:26] LABS: BASOPHILS % (AUTO) 0 % (0-10); EOSINOPHILS # (AUTO) 0.1 10^3/uL (0.0-0.3); EOSINOPHILS % (AUTO) 1 % (0-10); HEMATOCRIT 42 % (40-54); HEMOGLOBIN 14.3 G/DL (13.3-17.7); LYMPHOCYTES # (AUTO) 2.5 X 10^3 (1.0-4.0); LYMPHOCYTES % (AUTO) 21 % (12-44); MEAN CORPUSCULAR HEMOGLOBIN 31 PG (25-34); MEAN CORPUSCULAR HGB CONC 34 G/DL (32-36); MEAN CORPUSCULAR VOLUME 92 FL (80-99); MEAN PLATELET VOLUME 10.4 FL (7.4-10.4); MONOCYTES # (AUTO) 0.7 X 10^3 (0.0-1.0); MONOCYTES % (AUTO) 6 % (0-12); NEUTROPHILS # (AUTO) 8.8 X 10^3 (1.8-7.8); NEUTROPHILS % (AUTO) 72 % (42-75); PLATELET COUNT 220 10^3/uL (130-400); RED BLOOD COUNT 4.56 10^6/uL (4.35-5.85); RED CELL DISTRIBUTION WIDTH 14.2 % (10.0-14.5); WHITE BLOOD COUNT 12.2 10^3/uL (4.3-11.0)
[2018-04-22 20:42] LABS: ALANINE AMINOTRANSFERASE 30 U/L (0-55); ALBUMIN 4.2 GM/DL (3.2-4.5); ALKALINE PHOSPHATASE 80 U/L (40-136); BILIRUBIN,TOTAL 0.8 MG/DL (0.1-1.0); BUN/CREATININE RATIO 6; CALCIUM 9.3 MG/DL (8.5-10.1); CARBON DIOXIDE 19 MMOL/L (21-32); CHLORIDE 105 MMOL/L (98-107); CREATININE SERUM 0.79 MG/DL (0.60-1.30); GFR ESTIMATED > 60; GLUCOSE 117 MG/DL (70-105); POTASSIUM 3.5 MMOL/L (3.6-5.0); SODIUM 139 MMOL/L (135-145); TOTAL PROTEIN 7.3 GM/DL (6.4-8.2)
[2018-04-22 20:46] LABS: BILIRUBIN,URINE NEGATIVE (NEGATIVE); CLARITY,URINE CLEAR; COLOR,URINE YELLOW; GLUCOSE, URINE (UA) NEGATIVE (NEGATIVE); KETONES,URINE NEGATIVE (NEGATIVE); LEUKOCYTE ESTERASE ,URINE NEGATIVE (NEGATIVE); NITRITE,URINE NEGATIVE (NEGATIVE); PH,URINE 5 (5-9); PROTEIN,URINE NEGATIVE (NEGATIVE); UROBILINOGEN,URINE NORMAL (NORMAL)
[2018-04-22 20:53] LABS: SQUAMOUS EPITHELIAL CELL,UR RARE /HPF
[2018-04-22 20:57] LABS: AMPHETAMINE SCREEN, URINE NEGATIVE (NEGATIVE); BARBITURATE SCREEN URINE NEGATIVE (NEGATIVE); BENZODIAZEPINES SCREEN URINE POSITIVE (NEGATIVE); CANNABINOID SCREEN, URINE NEGATIVE (NEGATIVE); COCAINE SCREEN URINE NEGATIVE (NEGATIVE); METHADONE STAT NEGATIVE (NEGATIVE); METHAMPHETAMINE SCREEN URINE S NEGATIVE (NEGATIVE); OPIATE SCREEN URINE NEGATIVE (NEGATIVE); OXYCODONE STAT NEGATIVE (NEGATIVE); PROPOXYPHENE STAT NEGATIVE (NEGATIVE); TRICYCLIC ANTIDEPRESSANTS SCRE NEGATIVE (NEGATIVE)
[2018-04-22] MEDS ORDERED: ONDANSETRON 4 MG/2 ML (SDV) Z0FRAN IVP ONE (21:00)
[2018-04-22] MEDS ORDERED: IOHEXOL 350 MG/ML 100 ML (OMNIPAQUE 350) VIAL IV ONE (21:15)
--- NOTE | 2018-04-22 21:54 | Diagnostic Imaging Report ---
PROCEDURE: CT head and CT cervical spine without contrast. TECHNIQUE: Multiple contiguous axial images were obtained through the brain and cervical spine without the use of intravenous contrast. Sagittal and coronal reformations through the cervical spine were then performed. INDICATION: Trauma. Fall. Facial and abdominal injuries. COMPARISON: None. FINDINGS: CT head: No intracranial hemorrhage, mass effect, hydrocephalus or extra-axial fluid collections. No CT evidence of acute infarction. Osseous structures are intact. The visualized paranasal sinuses and mastoids are clear. Cervical spine: Normal alignment. Vertebral body heights preserved. No fractures. No evidence of high-grade spinal canal or neural foraminal narrowing. The visualized paravertebral soft tissues are unremarkable. IMPRESSION: No acute intracranial or cervical spine CT findings. Dictated by: Dictated on workstation # [id number]
--- NOTE | 2018-04-22 22:21 | Diagnostic Imaging Report ---
PROCEDURE: CT chest, abdomen, and pelvis with contrast. TECHNIQUE: Multiple contiguous axial images were obtained through the chest, abdomen, and pelvis after the administration of intravenous contrast. INDICATION: Trauma. Fall. Abdominal injury. COMPARISON: None. FINDINGS: CHEST: Examination is markedly limited by motion artifact. No thoracic aortic aneurysm or dissection. Normal caliber pulmonary arteries. Normal heart size. No pericardial effusion. No mediastinal, hilar or axillary lymphadenopathy. No endobronchial lesions. No dense consolidation. No pleural effusion or pneumothorax. Osseous structures are intact. ABDOMEN AND PELVIS: Benign appearing dystrophic calcification in the right hepatic lobe. The gallbladder, pancreas, spleen, adrenals, left kidney, collecting systems and partially opacified bladder are negative. Simple appearing cysts in the right kidney. No free intraperitoneal air or fluid. No lymphadenopathy. No evidence of bowel obstruction or injury. Normal appendix. No acute osseous findings. Mild stranding in the subcutaneous tissues of the anterior abdominal wall on the left. IMPRESSION: 1. Examination limited by motion artifact. 2. No acute CT findings in the chest, abdomen or pelvis. 3. Mild subcutaneous stranding in the anterior abdominal wall on the left compatible with reported contusion. Dictated by: Dictated on workstation # [id number]
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
[2018-04-23] VITALS (19 sets, daily range): BP systolic 109–153; BP diastolic 70–108
[2018-04-23] MEDS ORDERED: ONDANSETRON 4 MG/2 ML (SDV) Z0FRAN IV PRN (00:15)
[2018-04-23] MEDS ORDERED: CATHETER FLUSH 10 ML SYR IV PRN (00:15)
[2018-04-23] MEDS: NS IV 1000 ML 1,000 ML IV SCH ×2 (00:30→08:05)
[2018-04-23] MEDS ORDERED: LORazepam INJ 2 MG/ML (ATIVAN) VIAL IV PRN (04:00)
[2018-04-23] MEDS ORDERED: LORazepam 1 MG (ATIVAN) TAB PO PRN (04:00)
[2018-04-23 04:20] LABS: BASOPHILS % (AUTO) 0 % (0-10); EOSINOPHILS # (AUTO) 0.1 10^3/uL (0.0-0.3); EOSINOPHILS % (AUTO) 1 % (0-10); HEMATOCRIT 40 % (40-54); LYMPHOCYTES # (AUTO) 2.5 X 10^3 (1.0-4.0); LYMPHOCYTES % (AUTO) 33 % (12-44); MEAN CORPUSCULAR HEMOGLOBIN 32 PG (25-34); MEAN CORPUSCULAR HGB CONC 35 G/DL (32-36); MEAN CORPUSCULAR VOLUME 93 FL (80-99); MEAN PLATELET VOLUME 10.7 FL (7.4-10.4); MONOCYTES # (AUTO) 0.6 X 10^3 (0.0-1.0); MONOCYTES % (AUTO) 8 % (0-12); NEUTROPHILS # (AUTO) 4.4 X 10^3 (1.8-7.8); NEUTROPHILS % (AUTO) 58 % (42-75); PLATELET COUNT 226 10^3/uL (130-400); RED BLOOD COUNT 4.33 10^6/uL (4.35-5.85); RED CELL DISTRIBUTION WIDTH 14.3 % (10.0-14.5); WHITE BLOOD COUNT 7.6 10^3/uL (4.3-11.0)
[2018-04-23 04:38] LABS: ALANINE AMINOTRANSFERASE 29 U/L (0-55); ALBUMIN 3.9 GM/DL (3.2-4.5); ALKALINE PHOSPHATASE 79 U/L (40-136); BILIRUBIN,TOTAL 0.6 MG/DL (0.1-1.0); BUN/CREATININE RATIO 6; CALCIUM 8.9 MG/DL (8.5-10.1); CARBON DIOXIDE 19 MMOL/L (21-32); CHLORIDE 108 MMOL/L (98-107); CREATININE SERUM 0.78 MG/DL (0.60-1.30); GFR ESTIMATED > 60; GLUCOSE 95 MG/DL (70-105); MAGNESIUM 2.2 MG/DL (1.8-2.4); PHOSPHORUS 2.7 MG/DL (2.3-4.7); POTASSIUM 3.8 MMOL/L (3.6-5.0); SODIUM 142 MMOL/L (135-145); TOTAL PROTEIN 6.7 GM/DL (6.4-8.2)
[2018-04-23] MEDS: CATHETER FLUSH 10 ML SYR IV SCH ×3 (04:46→20:59)
[2018-04-23] MEDS: KCL 20 MEQ TAB (K-DUR) PO SCH (04:47)
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
[2018-04-23] MEDS ORDERED: POTASSIUM CL 10MEQ/50ML IVPB 50 ML IV SCH (06:00)
[2018-04-23] MEDS ORDERED: MAGNESIUM 1 GM/100 ML IVPB 100 ML IV SCH (06:00)
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
[2018-04-23] MEDS ORDERED: ACETAMINOPHEN 325 MG TABLET PO PRN (08:30)
[2018-04-23] MEDS: FOLIC ACID 1 MG TAB PO SCH (08:47)
[2018-04-23] MEDS: THIAMINE 100 MG (VITAMIN B-1) TAB PO SCH (08:47)
[2018-04-23] MEDS: MULTIVIT W/MINERALS TAB (THERAGRAN M) PO SCH (08:47)
[2018-04-23] MEDS ORDERED: CHLO25CA10 PO (09:44)
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
[2018-04-23] MEDS: NICOTINE 21 MG (NICODERM) PATCH TD SCH (21:02)
[2018-04-24] VITALS (7 sets, daily range): BP systolic 115–139; BP diastolic 71–89
[2018-04-24] MEDS: NS IV 1000 ML 1,000 ML IV SCH (00:20)
[2018-04-24 04:04] LABS: BASOPHILS % (AUTO) 0 % (0-10); EOSINOPHILS # (AUTO) 0.1 10^3/uL (0.0-0.3); EOSINOPHILS % (AUTO) 1 % (0-10); HEMATOCRIT 38 % (40-54); LYMPHOCYTES # (AUTO) 3.5 X 10^3 (1.0-4.0); LYMPHOCYTES % (AUTO) 44 % (12-44); MEAN CORPUSCULAR HEMOGLOBIN 32 PG (25-34); MEAN CORPUSCULAR HGB CONC 34 G/DL (32-36); MEAN CORPUSCULAR VOLUME 94 FL (80-99); MEAN PLATELET VOLUME 10.2 FL (7.4-10.4); MONOCYTES # (AUTO) 0.7 X 10^3 (0.0-1.0); MONOCYTES % (AUTO) 8 % (0-12); NEUTROPHILS # (AUTO) 3.8 X 10^3 (1.8-7.8); NEUTROPHILS % (AUTO) 47 % (42-75); PLATELET COUNT 215 10^3/uL (130-400); RED BLOOD COUNT 4.03 10^6/uL (4.35-5.85); RED CELL DISTRIBUTION WIDTH 14.6 % (10.0-14.5)
[2018-04-24 04:25] LABS: BUN/CREATININE RATIO 16; CALCIUM 8.6 MG/DL (8.5-10.1); CARBON DIOXIDE 24 MMOL/L (21-32); CHLORIDE 109 MMOL/L (98-107); CREATININE SERUM 0.86 MG/DL (0.60-1.30); GFR ESTIMATED > 60; GLUCOSE 102 MG/DL (70-105); MAGNESIUM 1.9 MG/DL (1.8-2.4); PHOSPHORUS 3.1 MG/DL (2.3-4.7); POTASSIUM 3.4 MMOL/L (3.6-5.0); SODIUM 140 MMOL/L (135-145)
[2018-04-24] MEDS: THIAMINE 100 MG (VITAMIN B-1) TAB PO SCH (06:40)
[2018-04-24] MEDS: MULTIVIT W/MINERALS TAB (THERAGRAN M) PO SCH (06:40)
[2018-04-24] MEDS: FOLIC ACID 1 MG TAB PO SCH (06:40)
[2018-04-24] MEDS: CATHETER FLUSH 10 ML SYR IV SCH ×3 (06:41→21:00)
[2018-04-24] MEDS: KCL 20 MEQ TAB (K-DUR) PO SCH (06:50)
[2018-04-24] MEDS ORDERED: KCL 10 MEQ TAB (MICRO K) PO NR (07:00)
--- NOTE | 2018-04-24 07:39 | Progress Note (SOAP) ---
Subjective Time Seen by Provider: 07:40 Subjective/Events-last exam Patient doing better today. Patient states she's not suicidal at this moment. 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 To be evaluated by mental health Objective Exam Vital Signs Date Time Temp Pulse Resp B/P (MAP) Pulse Ox O2 Delivery O2 Flow Rate FiO2 04/24/18 04:29 98.4 95 18 115/73 (87) 96 Room Air 04/24/18 00:06 98.4 101 18 120/72 (88) 93 Room Air 04/23/18 19:25 98.3 110 16 115/73 (87) 93 Room Air 04/23/18 16:00 98.8 117 18 121/70 (87) 93 Room Air 04/23/18 12:00 98.7 109 18 120/81 (94) 94 Room Air 04/23/18 08:00 98.6 91 18 137/94 (108) 94 Room Air I & O 04/24/18 07:00 Intake Total 1900 ml Output Total 350 ml Balance 1550 ml Capillary Refill : Less Than 3 Seconds General Appearance: No Apparent Distress, WD/WN HEENT: Normal ENT Inspection Neck: Full Range of Motion Respiratory: No Accessory Muscle Use, No Respiratory Distress Cardiovascular: Regular Rate, Rhythm, No Murmur Gastrointestinal: non tender, soft Results Lab Laboratory Tests 04/24/18 04:00: White Blood Count 8.0, Red Blood Count 4.03L, Hemoglobin 13.0L, Hematocrit 38L, Mean Corpuscular Volume 94, Mean Corpuscular Hemoglobin 32, Mean Corpuscular Hemoglobin Concent 34, Red Cell Distribution Width 14.6H, Platelet Count 215, Mean Platelet Volume 10.2, Neutrophils (%) (Auto) 47, Lymphocytes (%) (Auto) 44 , Monocytes (%) (Auto) 8, Eosinophils (%) (Auto) 1, Basophils (%) (Auto) 0, Neutrophils # (Auto) 3.8, Lymphocytes # (Auto) 3.5, Monocytes # (Auto) 0.7, Eosinophils # (Auto) 0.1, Basophils # (Auto) 0.0, Sodium Level 140, Potassium Level 3.4L, Chloride Level 109H, Carbon Dioxide Level 24, Anion Gap 7, Blood Urea Nitrogen 14, Creatinine 0.86, Estimat Glomerular Filtration Rate > 60, BUN/ Creatinine Ratio 16, Glucose Level 102, Calcium Level 8.6, Phosphorus Level 3.1 , Magnesium Level 1.9 Assessment/Plan Assessment/Plan Assess & Plan/Chief Complaint Alcoholic intoxication. Alcoholism. Suicidal ideation. Patient doing better Clinical Quality Measures Admission Status Admission Dx suicidal ideation. Alcoholic intoxication. Homeless. History of alcoholism. DVT/VTE Risk/Contraindication: Risk Factor Score Per Nursin RFS Level Per Nursing on Admit: 2=Moderate Contraindications-Pharm: Other *list below* ASA VALENCIA DO Apr 24, 2018 07:39
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
[2018-04-24] MEDS: NICOTINE 21 MG (NICODERM) PATCH TD SCH (09:46)
--- NOTE | 2018-04-24 15:07 | Behavioral Health Consult ---
Consult- Consult Date Seen by Provider: Apr 24, 2018 Time Seen by Provider: 13:00 Referral: Rafael Mabry is a 47-year-old, , male referred by Dr. Bass for a clinical diagnostic assessment. Information for this evaluation was gathered from self-report and medical records. Presenting Problem: The presenting clinical problem is depression and alcohol use. Rafael reported he has had depression for a long time, but is drastically increased three years ago when he got . He reported his drinking alcohol also increased around that time. He stated he has not really had anywhere stable to live since his divorce. He reported his behavior when he is drinking alcohol leads to him not being able to maintain living with friends. He reported he drinks alcohol everyday and the amount depends on how much he has. He reported he drinks to the point of intoxication nearly every time he drinks. He reported when he did get sober he went to treatment, went to a custodial house, and found [facility]. He stated he knows he needs structure to get sober. He reported he is either very depressed or not depressed at all with no in between. He reported he does not sleep much and his energy level is low. He reported thoughts of hopelessness and worthlessness. He stated he feels he is failure and feels like he is getting older and has not accomplished anything. Overall symptoms observed or reported requiring current level of care include alcohol abuse/dependence, anergia, anhedonia, depressed mood, familial stress/strain, hopelessness, sleep disturbance (onset delay/easily awakened), and worry. Observations/Mental Status: Rafael was lying in the hospital bed when therapist arrived. Overall appearance was dressed in hospital gown. Rafael appeared to be an adequate historian. Observed gait and gross motor movements indicated no clinically significant difficulties. In regards to pain, no problems were reported. Josephine general approach to the evaluation was cooperative. Orientation was intact for person, place, time, and situation. Rafael evidenced good understanding of the reason for the appointment. Josephine in-session behavior was cooperative. The predominant mood was depressed with blunted affect. Immediate attention and concentration was grossly intact. Memory functioning appeared to be intact. Level of intellectual functioning compared to same age peers was estimated to be in the average range. Thought processes were found to be generally logical, coherent and goal directed. Thought content appeared normal. There was no report or evidence of hallucinations or delusions. Psychomotor functioning was within normal limits. Tone of voice was normal and controlled. Expressive speech was marked by fluent speech and language. Eye contact was poor. Insight was fair. Overall, style of interacting during the appointment was appropriate and motivated. Current/Previous Mental Health Treatment: Past psychiatric history was reported as counseling when in treatment, but no outpatient therapy. He reported a history of being on antidepressants, but does not recall when he was last on any. He stated he was not consistent in taking the medication. History of self or other harm: reported having thoughts of suicide nearly every day. He stated he last thought about a plan for suicide the day he was admitted. He reported drinking tends to increase his suicidal thoughts and leads to plans. He stated when he drinks he hopes that he will not wake up. Family history of mental health was reported as paternal grandmother had schizophrenia and father had depression. Medical History: Medical conditions were reported as sometimes has issues with his blood pressure. Drug allergies: codeine. Recreational Drug Usage: Substance abuse history was reported as significant alcohol abuse for most of my life. He reported he was sober for seven years until 2015. He reported he has been to several alcohol treatment facilities and custodial houses. He reported the last custodial house in [place] he was not able to get treatment for his depression. He reported he is open to going to alcohol treatment again. Educational and Vocational Histories: Rafael reported he has a GED. He reported an inconsistent work history. However, he was employed at [employer] from 2008 to 2014 during his period of sobriety. Legal History: Legal history was reported as none. Family and Social Histories: Rafael currently does not have a permanent residence. He reported he stays with whoever will let him. He reported he has a brother in [place] that is supportive, but the brothers girlfriend does not like him. He stated he was for 10 years and three years ago. He reported his alcohol use was a factor in the divorce. He reported he adopted two kids with his ex- and they reside wither. He stated he does call to see how they are. Ability to care for oneself: is not limited in any way. Strengths/Weaknesses: Strengths/Resources: independent Liabilities/Barriers: limited support network, uncertain/unstable work history, and unstable living environment Summary of Assessment Information/Recommendations: Rafael is a 47-year-old male with history of significant alcohol dependence and depression. Following current assessment, presenting problem and symptoms appear consistent with a preliminary diagnosis of F33.2 Major Depressive Disorder, Recurrent, Severe. Current emotional symptoms are of severe intensity. Overall, prognosis is estimated to be guarded. Rafael presents as though he wants to make positive changes in his life, but that will likely easily change when released from the hospital and he has no help or support. He is likely to relapse on alcohol given his current circumstances of no or little support, no stable living environment, depression, and no job. He reported he is not suicidal; however he reports he continues to have suicidal thoughts every day. Therapist talked with Haley Goldberg with [employer] [facility] and she will call more resources to see if she can find appropriate treatment options for Rafael. It is recommended that Rafael receive treatment for his depression and alcohol dependence. It is important that both of these issues be addressed for him to improve. It is recommended that he have an evaluation to determine if he qualifies for inpatient substance abuse treatment, but his depression also needs to be addressed. He may benefit from inpatient psychiatric hospitalization ; however given the decrease in his suicidal ideation he may no longer qualify. He reported [facility] is important to him and he will likely need some shannon based services to help with his alcohol dependence. If he does stay locally, [facility] [employer] [facility] can call to schedule an appointment for Rafael with this provider for outpatient psychotherapy. If possible, arrangements for him at a nursing home or custodial house would be beneficial. ICD-10 Diagnostic Impressions: F33.2 Major Depressive Disorder, Recurrent, Severe F10.20 Alcohol Dependence ARMANI RECINOS Apr 24, 2018 15:06
[2018-04-25 03:15] VITALS: BP 119/76
[2018-04-25] MEDS: FOLIC ACID 1 MG TAB PO SCH (05:34)
[2018-04-25] MEDS: THIAMINE 100 MG (VITAMIN B-1) TAB PO SCH (05:34)
[2018-04-25] MEDS: CATHETER FLUSH 10 ML SYR IV SCH (05:34)
[2018-04-25] MEDS: MULTIVIT W/MINERALS TAB (THERAGRAN M) PO SCH (05:34)
[2018-04-25 06:24] LABS: HEMATOCRIT 38 % (40-54); MEAN CORPUSCULAR HEMOGLOBIN 32 PG (25-34); MEAN CORPUSCULAR HGB CONC 34 G/DL (32-36); MEAN CORPUSCULAR VOLUME 93 FL (80-99); RED BLOOD COUNT 4.08 10^6/uL (4.35-5.85); WHITE BLOOD COUNT 8.2 10^3/uL (4.3-11.0)
[2018-04-25 06:25] LABS: BASOPHILS % (AUTO) 0 % (0-10); EOSINOPHILS # (AUTO) 0.2 10^3/uL (0.0-0.3); EOSINOPHILS % (AUTO) 3 % (0-10); LYMPHOCYTES # (AUTO) 3.5 X 10^3 (1.0-4.0); LYMPHOCYTES % (AUTO) 42 % (12-44); MEAN PLATELET VOLUME 10.6 FL (7.4-10.4); MONOCYTES # (AUTO) 0.6 X 10^3 (0.0-1.0); MONOCYTES % (AUTO) 8 % (0-12); NEUTROPHILS # (AUTO) 3.9 X 10^3 (1.8-7.8); NEUTROPHILS % (AUTO) 47 % (42-75); PLATELET COUNT 204 10^3/uL (130-400); RED CELL DISTRIBUTION WIDTH 14.2 % (10.0-14.5)
[2018-04-25 06:42] LABS: BUN/CREATININE RATIO 12; CALCIUM 8.9 MG/DL (8.5-10.1); CARBON DIOXIDE 21 MMOL/L (21-32); CHLORIDE 106 MMOL/L (98-107); CREATININE SERUM 0.75 MG/DL (0.60-1.30); GFR ESTIMATED > 60; GLUCOSE 102 MG/DL (70-105); MAGNESIUM 1.8 MG/DL (1.8-2.4); PHOSPHORUS 3.1 MG/DL (2.3-4.7); POTASSIUM 3.3 MMOL/L (3.6-5.0); SODIUM 138 MMOL/L (135-145)
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
[2018-04-25] MEDS ORDERED: KCL 20 MEQ TAB (K-DUR) PO NR (07:30)
[2018-04-25 08:00] VITALS: BP 128/88
[2018-04-25] MEDS ORDERED: NICOTINE PATCH REMOVAL TP SCH (08:59)
[2018-04-25] MEDS: NICOTINE 21 MG (NICODERM) PATCH TD SCH (09:36)
[2018-04-25 12:00] VITALS: BP 124/76
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
== END 2018-04-25 14:12 ==
LOC: EDUNIT# 19:24 → ER 19:26 → ICU 23:43 → 4TH 04-23 08:00
PROVIDERS: ADMIT Family Medicine; ATTEND Family Medicine
DX: R45.851 Suicidal ideations (principal); F10.229 Alcohol dependence with intoxication, unspecified; Y90.7 Blood alcohol level of 200-239 mg/100 ml; F32.9 Major depressive disorder, single episode, unspecified; S00.83XA Contusion of other part of head, initial encounter; S30.1XXA Contusion of abdominal wall, initial encounter; E87.2 Acidosis; G40.909 Epilepsy, unspecified, not intractable, without status epilepticus; R16.0 Hepatomegaly, not elsewhere classified; F17.220 Nicotine dependence, chewing tobacco, uncomplicated; F12.90 Cannabis use, unspecified, uncomplicated; K21.9 Gastro-esophageal reflux disease without esophagitis; V28.1XXA Motorcycle passenger injured in noncollision transport accident in nontraffic accident, initial encounter; Z76.5 Malingerer [conscious simulation]; Z59.0 Homelessness
CPT/HCPCS: 36415; 70450; 71260; 72125; 74177; 80048; 80053; 80306; 80320; 81000; 83735; 84100; 85025; 87081; 96361; 96374; G0378

== ENCOUNTER 2018-04-30 20:54 | Emergency (ER) | payer SELFPAY ==
[~2018-04-30] VITALS: Ht 165.1 cm; Wt 95.3 kg
[~2018-04-30 20:54] MED LIST changes: +CHLO25CA10 PO
[2018-04-30] MEDS ORDERED: PANTOPRAZOLE 40 MG (PROTONIX) VIAL IV STA (21:48)
[2018-04-30] MEDS ORDERED: ASPIRIN 81 MG CHEW (CHILDREN'S ASA) PO ONE (22:00)
[2018-04-30 22:04] LABS: BASOPHILS % (AUTO) 0 % (0-10); EOSINOPHILS # (AUTO) 0.1 10^3/uL (0.0-0.3); EOSINOPHILS % (AUTO) 1 % (0-10); HEMATOCRIT 40 % (40-54); LYMPHOCYTES # (AUTO) 3.9 X 10^3 (1.0-4.0); LYMPHOCYTES % (AUTO) 48 % (12-44); MEAN CORPUSCULAR HEMOGLOBIN 32 PG (25-34); MEAN CORPUSCULAR HGB CONC 35 G/DL (32-36); MEAN CORPUSCULAR VOLUME 91 FL (80-99); MEAN PLATELET VOLUME 10.7 FL (7.4-10.4); MONOCYTES # (AUTO) 0.6 X 10^3 (0.0-1.0); MONOCYTES % (AUTO) 7 % (0-12); NEUTROPHILS # (AUTO) 3.5 X 10^3 (1.8-7.8); NEUTROPHILS % (AUTO) 44 % (42-75); PLATELET COUNT 269 10^3/uL (130-400); RED BLOOD COUNT 4.42 10^6/uL (4.35-5.85); RED CELL DISTRIBUTION WIDTH 14.5 % (10.0-14.5)
[2018-04-30 22:25] LABS: ALANINE AMINOTRANSFERASE 23 U/L (0-55); ALBUMIN 4.2 GM/DL (3.2-4.5); ALKALINE PHOSPHATASE 81 U/L (40-136); AMYLASE 29 U/L (25-125); BILIRUBIN,TOTAL 0.5 MG/DL (0.1-1.0); BUN/CREATININE RATIO 8; CARBON DIOXIDE 16 MMOL/L (21-32); CHLORIDE 102 MMOL/L (98-107); CREATININE SERUM 0.71 MG/DL (0.60-1.30); GFR ESTIMATED > 60; GLUCOSE 97 MG/DL (70-105); LIPASE 12 U/L (8-78); MAGNESIUM 2.1 MG/DL (1.8-2.4); POTASSIUM 3.4 MMOL/L (3.6-5.0); SODIUM 136 MMOL/L (135-145)
[2018-04-30 22:32] LABS: MYOGLOBIN SERUM 25.2 NG/ML (10.0-92.0)
[2018-04-30 22:40] LABS: BILIRUBIN,URINE NEGATIVE (NEGATIVE); CLARITY,URINE CLEAR; COLOR,URINE YELLOW; GLUCOSE, URINE (UA) NEGATIVE (NEGATIVE); KETONES,URINE NEGATIVE (NEGATIVE); LEUKOCYTE ESTERASE ,URINE NEGATIVE (NEGATIVE); NITRITE,URINE NEGATIVE (NEGATIVE); PH,URINE 6 (5-9); PROTEIN,URINE NEGATIVE (NEGATIVE); UROBILINOGEN,URINE NORMAL (NORMAL)
[2018-04-30 22:51] LABS: SQUAMOUS EPITHELIAL CELL,UR RARE /HPF
[2018-04-30 22:53] LABS: AMPHETAMINE SCREEN, URINE NEGATIVE (NEGATIVE); BARBITURATE SCREEN URINE NEGATIVE (NEGATIVE); BENZODIAZEPINES SCREEN URINE POSITIVE (NEGATIVE); CANNABINOID SCREEN, URINE NEGATIVE (NEGATIVE); COCAINE SCREEN URINE NEGATIVE (NEGATIVE); METHADONE STAT NEGATIVE (NEGATIVE); METHAMPHETAMINE SCREEN URINE S NEGATIVE (NEGATIVE); OPIATE SCREEN URINE NEGATIVE (NEGATIVE); OXYCODONE STAT NEGATIVE (NEGATIVE); PROPOXYPHENE STAT NEGATIVE (NEGATIVE); TRICYCLIC ANTIDEPRESSANTS SCRE NEGATIVE (NEGATIVE)
[2018-05-01] MEDS ORDERED: PRD10T PO (00:07)
[2018-05-01] MEDS ORDERED: PANT40TA2 PO (00:07)
--- NOTE | 2018-05-01 00:07 | ED General ---
General Chief Complaint: Respiratory Problems Stated Complaint: SENT BY ANNIE,PROBLEM WITH LUNG Nursing Triage Note: PT AMB TO ROOM #9 W/O DIFFICULTY. A&OX4. CO PAIN TO "LEFT LUNG AND TROUBLE GETTING AIR." PT REPORTS THESE SYMPTOMS BEGAN YESTERDAY AND HAVE PROGRESSIVELY GOTTEN WORSE. REPORTS AFTER WALKING HIS DOG THIS EVENING, HE BEGAN TO FEEL MORE SOB AND CALLED DR. VALENCIA WHOM REFERRED PT TO THIS ED. INITIAL 02 SAT VIA RA 95%. LLL SOUNDS DIMINISHED UPON AUSCULTATION. RT LUNG SOUNDS CTA. PT DENIES CHEST PAIN. PT REPORTS THE PAIN TO LT SIDE OF LUNG "COMES AND GOES AND SOMETIMES WRAPS AROUND TO MY BACK." REPORTS HE HAS BEGAN TO FEEL MORE DIZZY THIS AFTERNOON. DENIES RECENT FEVER OR CHILLS. PT REPORTS NAUSEA AND RECENT DIARRHEA. Nursing Sepsis Screen: No Definite Risk Source of Information: Patient History of Present Illness Date Seen by Provider: Apr 30, 2018 Time Seen by Provider: 21:40 Initial Comments PT ARRIVES VIA POV, AMBULATES INTO ER WITHOUT DIFFICULTY PT STATES "MY LEFT LUNG" "I CAN'T BREATHE" STATES "IT STARTED HAPPENING LAST NIGHT" PT STATES HE CALLED DR. VALENCIA EARLIER TODAY AND WAS TOLD AT THAT TIME TO GO TO ER, BUT PT WAITED UNTIL TONIGHT STATES IT IS BETTER, AND GOES AWAY WITH LAYING ON LEFT SIDE. STATES HE GOT DIZZY EARLIER WHEN HE WAS WALKING THE DOG STATES HE GETS "SHORT OF BREATH LIKE I GET DIZZY WHEN I BREATHE" NO COUGH POSSIBLY HAD SUBJECTIVE FEVER EARLIER TODAY HAS NOT TAKEN ANYTHING FOR PAIN PT WAS HOSPITALIZED A COUPLE OF DAYS AGO FOR "DETOX" FROM ALCOHOL, AND IT WAS ARRANGED FOR PT TO GO TO [facility] FOR OUTPATIENT TREATMENT, BUT PT HAS NOT GONE PT HAS CONTINUED TO DRINK FROM THE MINUTE HE GOT HOME FROM THE HOSPITAL, AND STATES HE "ONLY HAD 5 OR 6 TODAY" PT HAS HAD A MULTITUDE OF ADMITS FOR WANTING TO BE "DETOXED" FROM ALCOHOL, AND HAS IMMEDIATELY STARTED DRINKING SOON HE WAS RELEASED FROM THE HOSPITAL PT WAS ADMITTED 04/20-04/21 FOR ALCOHOL "DETOX" , THEN READMITTED 04/22-04/25 FOR ALCOHOL "DETOX" AND SUICIDAL IDEATIONS PT HAD BEEN ON LIBRIUM X 1 MONTH, BUT HAS NOT HAD ANY IN THE LAST 3 DAYS. ON RECENT ADMIT, PT THREATENED SUICIDE BY OVERDOSING ON LIBRIUM PT HAS HAD 23 VISITS--ALL FOR ALCOHOL AND PSYCH-RELATED ISSUES/SUICIDAL IDEATIONS WHILE INTOXICATED. WITH 6 VISITS SINCE 11/12/17. HAS BEEN TO [facility] FOR ALCOHOL REHAB, WELL MULTIPLE PSYCH ADMITS. PT CLAIMS HE HAS NEVER SEEN ANYONE FROM [facility] AFTER BEING DISMISSED FROM PSYCH UNITS PT IS HOMELESS PCP: DR. VALENCIA, ALSO GOES TO [facility], DR. Jaiden GALINDO Allergies and Home Medications Allergies Coded Allergies: codeine (Verified Allergy, Unknown, 09/23/05) Home Medications Pantoprazole Sodium 40 Mg Tablet.dr, 40 MG PO DAILY Prescribed by: EDITH ALMEIDA on 05/01/186 Prednisone 10 Mg Tab, 30 MG PO DAILY Prescribed by: EDITH ALMEIDA on 05/01/186 Patient Home Medication List Home Medication List Reviewed: Yes Review of Systems Review of Systems Constitutional: see HPI, dizziness EENTM: no symptoms reported Respiratory: see HPI; No cough; short of breath Cardiovascular: see HPI Gastrointestinal: diarrhea (NOT NOW), nausea (NOT NOW) Genitourinary: no symptoms reported Musculoskeletal: no symptoms reported Skin: no symptoms reported Psychiatric/Neurological: See HPI Hematologic/Lymphatic: No Symptoms Reported Immunological/Allergic: no symptoms reported Past Asajfco-Feqsky-Qahiov Hx Patient Social History Alcohol Use: Regular Use (HEAVY, DAILY USE--HAS ADMITTED TO AT LEAST 2 CASES OF BEER A DAY, PLUS A GALLON OF VODKA A DAY, ON PRIOR VISITS) Alcohol Beverage of Choice: Beer, Vodka Recreational Drug Use: Yes (THC) Drug of Choice: THC Smoking Status: Current Everyday Smoker Type Used: Cigarettes, Smokeless Tobacco 2nd Hand Smoke Exposure: Yes Recent Foreign Travel: No Contact w/Someone Who Travel: No Recent Infectious Disease Expo: No Recent Hopitalizations: No Physical Abuse: No Sexual Abuse: No Immunizations Up To Date Tetanus Booster (TDap): Less than 5yrs Date of Influenza Vaccine: May 18, 2016 Seasonal Allergies Seasonal Allergies: Yes Past Medical History Surgeries: Yes (COLONOSCOPY, LEFT EYE SURGERY FOR STRABISMUS AGE 4) Eye Surgery Respiratory: Yes Pneumonia Currently Using CPAP: No Currently Using BIPAP: No Cardiac: No Neurological: Yes (ALCOHOL WITHDRAWAL SEIZURES) Seizure Disorder Reproductive Disorders: No Sexually Transmitted Disease: No HIV/AIDS: No Genitourinary: No Gastrointestinal: Yes (HEPATOMEGALY) Gastroesophageal Reflux Musculoskeletal: No Endocrine: No HEENT: Yes (STRABISMUS EYE SURGERY AGE 4, WEARS GLASSES) Loss of Vision: Denies Hearing Impairment: Denies Cancer: No Psychosocial: Yes (ALCOHOLISM; SUICIDAL IDEATIONS) Depression Integumentary: No Blood Disorders: No Adverse Reaction/Blood Tranf: No Family Medical History Patient reports no known family medical history. Cancer, Hypertension, Psychiatric Problems Physical Exam Vital Signs Vital Signs - First Documented 04/30/18 21:31 Temp 97.0 Pulse 89 Resp 20 B/P (MAP) 141/103 (116) Pulse Ox 95 O2 Delivery Room Air Capillary Refill : Less Than 3 Seconds Height, Weight, BMI Height: 5'5.00" Weight: 210lbs. 14.4oz. 95.759891nm; 36.2 BMI Method:Stated General Appearance: No Apparent Distress, WD/WN, Other (+ODOR OF ALCOHOL. SPEECH CLEAR AND GAIT STEADY ON ARRIVAL TO ER. 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 Skin: Normal Color, Warm/Dry Progress/Results/Core Measures Suspected Sepsis Recent Fever Within 48 Hours: No Infection Criteria Present: None New/Unexplained Altered Menta: No Sepsis Screen: No Definite Risk SIRS Temperature:97.0 Pulse: 89 Respiratory Rate: 20 Blood Pressure 141 /103 Mean: 116 Results/Orders Lab Results My Orders Medications Given in ED Vital Signs/I&O Capillary Refill : Less Than 3 Seconds Blood Pressure Mean: 116 Progress Note : Progress Note NO COUGH OR ANY SYMPTOMS DURING ENTIRE ER STAY PT SLEPT ON LEFT SIDE FOR NEARLY ALL OF ER STAY ECG Initial ECG Impression Date: Apr 30, 2018 Initial ECG Impression Time: 21:58 Initial ECG Rate: 86 Initial ECG Rhythm: Normal Sinus Diagnostic Imaging Comments CXR--NO ACUTE PROCESS, PENDING RADIOLOGIST REVIEW CT CHEST ANGIOGRAM--NO ACUTE PROCESS, MILD COMPRESSION T 11, AGE INDETERMINATE. NODULAR CHANGES RIGHT LOBE OF THYROID--PER [facility] VIA FAX @ [phone] Reviewed: Reviewed by Me Departure Impression Primary Impression: Left-sided chest wall pain Additional Impression: Alcohol intoxication in active alcoholic Disposition: 01 HOME, SELF-CARE Condition: Stable Departure-Patient Inst. Referrals: ASA VALENCIA DO (PCP/Family) Primary Care Physician Patient Instructions: Alcohol Abuse and Alcoholism (DC), Chest Pain (DC), Chest Pain That Is Not Caused by the Heart (DC), Costochondritis (DC) Add. Discharge Instructions: NO ALCOHOL OF ANY KIND!!!! LOTS OF WATER AND GATORADE FOLLOW UP WITH DR. VALENCIA IN 2-3 DAYS FOR FURTHER CARE All discharge instructions reviewed with patient and/or family. Voiced understanding. Scripts Prednisone (Prednisone) 10 Mg Tab 30 MG PO DAILY, #9 TAB Prov: EDITH ALMEIDA DO 05/01/18 Pantoprazole Sodium (Protonix) 40 Mg Tablet. 40 MG PO DAILY, #15 TAB Prov: EDITH ALMEIDA DO 05/01/18 EDITH ALMEIDA DO May 01, 2018 00:07
[2018-05-01 00:20] VITALS: BP 126/86
--- NOTE | 2018-05-01 05:46 | Diagnostic Imaging Report ---
PROCEDURE: CT angiography of the chest with contrast. TECHNIQUE: Multiple contiguous axial images were obtained through the chest after uneventful bolus administration of intravenous contrast. Reconstructed CTA MIP acquisitions were also performed. INDICATION: Chest pain There is good opacification of pulmonary arteries without intraluminal filling defect. No thoracic aortic abnormality is identified. The lungs are clear and well expanded. There is is no significant pleural or pericardial fluid. Note is made of nodular changes in the right lobe of thyroid gland. Upper abdominal sections reveal diffuse low density in the liver indicating steatosis. There is anterior wedging of T11 vertebral body without evidence of associated hematoma indicating probable chronic nature. IMPRESSION: No CTA evidence of pulmonary embolus or other acute vascular abnormality. Note is made of nodular changes in the right lobe of thyroid gland which could be further assessed with ultrasonography if indicated. Otherwise, there is no acute abnormality detected. Dictated by: Dictated on workstation # [id number]
--- NOTE | 2018-05-01 08:00 | Diagnostic Imaging Report ---
Indication: Chest pain PA and lateral views of the chest are obtained. Comparison is made to study of 02/12/2018. There is air trapping, bilaterally. No pneumothorax or consolidation is identified. There is no significant pleural fluid. Impression: No acute abnormality or adverse change is identified. Dictated by: Dictated on workstation # [id number]
== END 2018-05-01 00:20 | disposition home or self-care (01) ==
LOC: EDUNIT# 20:54 → ER 20:55
DX: R07.89 Other chest pain (principal); F10.229 Alcohol dependence with intoxication, unspecified; G40.909 Epilepsy, unspecified, not intractable, without status epilepticus; K21.9 Gastro-esophageal reflux disease without esophagitis; F32.9 Major depressive disorder, single episode, unspecified; Z87.19 Personal history of other diseases of the digestive system; Z88.5 Allergy status to narcotic agent; Z79.52 Long term (current) use of systemic steroids; Z77.22 Contact with and (suspected) exposure to environmental tobacco smoke (acute) (chronic); Z87.01 Personal history of pneumonia (recurrent)
CPT/HCPCS: 36415; 71046; 71275; 80053; 80306; 80320; 81000; 82150; 83690; 83735; 83874; 83880; 84484; 85025; 85610; 85730; 93005; 93041; 96374

== ENCOUNTER 2018-05-03 02:35 | Emergency (ER) | payer SELFPAY ==
[~2018-05-03] VITALS: Ht 165.1 cm; Wt 95.7 kg
[~2018-05-03 02:35] MED LIST changes: +PANT40TA2 PO; +PRD10T PO
--- NOTE | 2018-05-03 03:19 | ED Psychosocial ---
General Chief Complaint: Substance Abuse Stated Complaint: ETOH Nursing Triage Note: REPORTS DRINKING 1 CASE OF BEER AND WANTING A RIDE TO [facility] FOR DETOX. Source: patient Exam Limitations: intoxication History of Present Illness Date Seen by Provider: May 03, 2018 Time Seen by Provider: 03:07 Initial Comments Patient presents to ER by EMS with chief complaint that he's been staying with a friend here in [place] for the past couple weeks and would like a ride to [facility]. He says he was told on the phone by someone at [facility] that if he can get down there that they would give him a banana bag and admit him for detox. He says he wants to stop drinking. His last drink was just before walking in the ER. He says he is having no pain nausea fevers chills vomiting or diarrhea. He also says that he was calling the [employer] asking them for a ride and they told him that if he came to the ER that they would give him a ride by ambulance. He denies any suicidal or homicidal ideation. He has been to the [facility] in [place] and does not want to go back there. He does not want outpatient treatment here and [facility] either he wants merely to have a ride to [place] where his home as. Says it we'll give him a ride to his home and [place] by ambulance then he will go to detox. Allergies and Home Medications Allergies Coded Allergies: codeine (Verified Allergy, Unknown, 09/23/05) Home Medications Pantoprazole Sodium 40 Mg Tablet.dr, 40 MG PO DAILY Prescribed by: EDITH ALMEIDA on 05/01/186 Prednisone 10 Mg Tab, 30 MG PO DAILY Prescribed by: EDITH ALMEIDA on 05/01/186 Patient Home Medication List Home Medication List Reviewed: Yes Review of Systems Constitutional: No chills, No diaphoresis EENTM: No ear discharge, No ear pain Respiratory: No cough, No short of breath Cardiovascular: No chest pain, No edema Gastrointestinal: No abdominal pain, No nausea Genitourinary: No discharge, No dysuria Past Gghefcn-Ukbwia-Zyiivy Hx Patient Social History Alcohol Use: Regular Use Number of Drinks Today: 24 Alcohol Beverage of Choice: Beer, Vodka Recreational Drug Use: No Drug of Choice: DENIES Smoking Status: Smoker Current Status UKN Type Used: Smokeless Tobacco 2nd Hand Smoke Exposure: Yes Recent Foreign Travel: No Contact w/Someone Who Travel: No Recent Infectious Disease Expo: No Recent Hopitalizations: No Immunizations Up To Date Tetanus Booster (TDap): Less than 5yrs Date of Influenza Vaccine: May 18, 2016 Seasonal Allergies Seasonal Allergies: Yes Past Medical History Surgeries: Yes (COLONOSCOPY, LEFT EYE SURGERY FOR STRABISMUS AGE 4) Eye Surgery Respiratory: Yes Pneumonia Currently Using CPAP: No Currently Using BIPAP: No Cardiac: No Neurological: Yes (ALCOHOL WITHDRAWAL SEIZURES) Seizure Disorder Reproductive Disorders: No Sexually Transmitted Disease: No HIV/AIDS: No Genitourinary: No Gastrointestinal: Yes (HEPATOMEGALY) Gastroesophageal Reflux Musculoskeletal: No Endocrine: No HEENT: Yes (STRABISMUS EYE SURGERY AGE 4, WEARS GLASSES) Loss of Vision: Denies Hearing Impairment: Denies Cancer: No Psychosocial: Yes (ALCOHOLISM; SUICIDAL IDEATIONS) Depression Integumentary: No Blood Disorders: No Adverse Reaction/Blood Tranf: No Family Medical History Patient reports no known family medical history. Cancer, Hypertension, Psychiatric Problems Physical Exam Vital Signs - First Documented 05/03/18 02:50 Temp 96.4 Pulse 94 Resp 18 B/P (MAP) 152/91 (111) Pulse Ox 94 O2 Delivery Room Air Capillary Refill : Less Than 3 Seconds Height, Weight, BMI Height: 5'5.00" Weight: 210lbs. 14.4oz. 95.629188pw; 36.2 BMI Method:Stated General Appearance: no apparent distress, other (disheveled) HEENT: PERRL/EOMI, normal ENT inspection, pharynx normal Neck: non-tender, full range of motion, normal inspection Respiratory: no respiratory distress, no accessory muscle use Cardiovascular: normal peripheral pulses, regular rate, rhythm, no edema Gastrointestinal: normal bowel sounds, non tender, soft Extremities: normal range of motion, non-tender, normal inspection Neurologic/Psychiatric: alert, normal mood/affect, oriented x 3 Behavior/Eye Contact: cooperative, good eye contact, normal speech Thoughts/Hallucinations: no apparent hallucination, other (denies suicidal or homicidal ideation.) Progress/Results/Core Measures Results/Orders Vital Signs/I&O 05/03/18 02:50 Temp 96.4 Pulse 94 Resp 18 B/P (MAP) 152/91 (111) Pulse Ox 94 O2 Delivery Room Air Blood Pressure Mean: 111 Progress Progress Note : Time: 03:17 Progress Note We've offered to do labs, thiamine, folate as well as referral to outpatient treatment [facility] and [facility]. The patient is adamant that he just wants to get to [place]. He is declining any further workup at this time and just wants to leave. He is decisional and does not appear to have any suicidal intent. He wants detox and he wants to do it at [place] and he says he can find a ride to [place] on his own in the morning. Departure Impression Primary Impression: Alcohol abuse Disposition: 01 HOME, SELF-CARE Condition: Stable Departure-Patient Inst. Decision time for Depature: 03:18 Referrals: ASA VALENCIA DO (PCP/Family) Primary Care Physician Patient Instructions: ALCOHOL AND SUBSTANCE ABUSE Add. Discharge Instructions: Present to [facility], for inpatient detox or [facility] for outpatient detox management. All discharge instructions reviewed with patient and/or family. Voiced understanding. DARIEL PERKNIS May 03, 2018 03:19
[2018-05-03] MEDS ORDERED: THIAMINE 100 MG (VITAMIN B-1) TAB PO ONE (03:30)
[2018-05-03] MEDS ORDERED: FOLIC ACID 1 MG TAB PO ONE (03:30)
[2018-05-03 03:38] VITALS: BP 152/91
== END 2018-05-03 03:37 | disposition home or self-care (01) ==
LOC: EDUNIT# 02:35 → ER 02:37
DX: F10.129 Alcohol abuse with intoxication, unspecified (principal); G40.909 Epilepsy, unspecified, not intractable, without status epilepticus; K21.9 Gastro-esophageal reflux disease without esophagitis; F32.9 Major depressive disorder, single episode, unspecified; Z87.19 Personal history of other diseases of the digestive system; Z88.5 Allergy status to narcotic agent; Z82.49 Family history of ischemic heart disease and other diseases of the circulatory system; Z79.52 Long term (current) use of systemic steroids; Z77.22 Contact with and (suspected) exposure to environmental tobacco smoke (acute) (chronic); Z87.01 Personal history of pneumonia (recurrent)
CPT/HCPCS: 99283

== ENCOUNTER 2019-07-07 14:31 | Emergency (ER) | payer SELFPAY ==
[~2019-07-07] VITALS: Ht 165 cm; Wt 95.0 kg
--- NOTE | 2019-07-07 15:02 | NUR ---
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
--- NOTE | 2019-07-07 15:09 | ED General ---
General Chief Complaint: Detox Stated Complaint: ALCOHOL DETOX Nursing Triage Note: PT STATES SENT HIM HERE FOR DETOX. 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 Nursing Sepsis Screen: No Definite Risk Source of Information: Patient Exam Limitations: No Limitations History of Present Illness Date Seen by Provider: Jul 07, 2019 Time Seen by Provider: 15:06 Initial Comments To ER by private vehicle with reports of alcohol use, states that he drank a liter of whiskey today, he drinks every day and refers to himself as an "alcy" (alcoholic). States that Dr. Govea do not hear. I spoke with Dr. Valencia who confirms that he has not seen this patient in several years and in fact did not patient states he would like to attempt detox today so he can compete in a Teen challenge in [place]--(shannon based approach to drug and alcohol abuse). History of 23 emergency room visits, each of which for alcohol-related complaints. He is not suicidal or homicidal. Timing/Duration: Other Severity: Moderate Associated Systoms: Denies Symptoms Allergies and Home Medications Allergies Coded Allergies: codeine (Verified Allergy, Unknown, 09/23/05) Home Medications Pantoprazole Sodium 40 Mg Tablet.dr, 40 MG PO DAILY Prescribed by: EDITH ALMEIDA on 05/01/186 Prednisone 10 Mg Tab, 30 MG PO DAILY Prescribed by: EDITH ALMEIDA on 05/01/186 Patient Home Medication List Home Medication List Reviewed: Yes Review of Systems Review of Systems Constitutional: see HPI (no tenderness), other (No symptoms, no signs or symptoms of detox, his chief complaint of detox refers to him wanting detox.) EENTM: see HPI Respiratory: no symptoms reported Cardiovascular: no symptoms reported Genitourinary: no symptoms reported Musculoskeletal: no symptoms reported Skin: no symptoms reported Psychiatric/Neurological: No Symptoms Reported Hematologic/Lymphatic: No Symptoms Reported Past Rvaifpg-Qkzhmz-Ondtyz Hx Patient Social History Alcohol Use: Regular Use Number of Drinks Today: FF Alcohol Beverage of Choice: Beer, Whiskey, Vodka Recreational Drug Use: Yes (HX OF IV METH, CLEAN 6 YRS) Drug of Choice: DENIES Type Used: Cigarettes, Smokeless Tobacco 2nd Hand Smoke Exposure: Yes Recent Foreign Travel: No Contact w/Someone Who Travel: No Recent Infectious Disease Expo: No Recent Hopitalizations: No Physical Abuse: No Sexual Abuse: No Immunizations Up To Date Tetanus Booster (TDap): Less than 5yrs Date of Influenza Vaccine: May 18, 2016 Seasonal Allergies Seasonal Allergies: Yes Past Medical History Surgeries: Yes (COLONOSCOPY, LEFT EYE SURGERY FOR STRABISMUS AGE 4) Eye Surgery Respiratory: Yes Pneumonia Currently Using CPAP: No Currently Using BIPAP: No Cardiac: No Neurological: Yes (ALCOHOL WITHDRAWAL SEIZURES) Seizure Disorder Reproductive Disorders: No Sexually Transmitted Disease: No HIV/AIDS: No Genitourinary: No Gastrointestinal: Yes (HEPATOMEGALY) Gastroesophageal Reflux Musculoskeletal: No Endocrine: No HEENT: Yes (STRABISMUS EYE SURGERY AGE 4, WEARS GLASSES) Loss of Vision: Denies Hearing Impairment: Denies Cancer: No Psychosocial: Yes (ALCOHOLISM; SUICIDAL IDEATIONS) Depression Integumentary: No Blood Disorders: No Adverse Reaction/Blood Tranf: No Family Medical History Patient reports no known family medical history. Cancer, Hypertension, Psychiatric Problems Physical Exam Vital Signs Vital Signs - First Documented 07/07/19 14:38 Temp 37.1 Pulse 108 Resp 20 B/P (MAP) 129/94 (106) Pulse Ox 95 O2 Delivery Room Air Capillary Refill : Less Than 3 Seconds Height, Weight, BMI Height: 5'5.00" Weight: 210lbs. 14.4oz. 95.792196cf; 34.00 BMI Method:Stated General Appearance: No Apparent Distress, WD/WN, Other (disheveled, appears o lder than stated age, ambulatory to room 3 without use of assistance, alert and oriented, cooperative and pleasant.) Eyes: Bilateral Eye Normal Inspection, Bilateral Eye PERRL, Bilateral Eye EOMI HEENT: PERRL/EOMI, TMs Normal Neck: Full Range of Motion, Normal Inspection Respiratory: Normal Breath Sounds, No Accessory Muscle Use, No Respiratory Distress Cardiovascular: Regular Rate, Rhythm, Normal Peripheral Pulses Gastrointestinal: Normal Bowel Sounds, Non Tender, Soft Extremity: Normal Capillary Refill, Normal Inspection Neurologic/Psychiatric: Alert, Oriented x3 Skin: Normal Color, Warm/Dry Progress/Results/Core Measures Suspected Sepsis Recent Fever Within 48 Hours: No Infection Criteria Present: None New/Unexplained Altered Menta: No Sepsis Screen: No Definite Risk SIRS Temperature: Pulse: 108 Respiratory Rate: 20 Laboratory Tests 07/07/19 15:11: White Blood Count 7.1 Blood Pressure 129 /94 Mean: 106 Laboratory Tests 07/07/19 15:11: Creatinine 0.80, INR Comment 0.9, Platelet Count 242, Total Bilirubin 0.7 Results/Orders Lab Results Laboratory Tests Test 07/07/19 15:11 Range/Units White Blood Count 7.1 4.3-11.0 10^3/uL Red Blood Count 4.56 4.35-5.85 10^6/uL Hemoglobin 15.1 13.3-17.7 G/DL Hematocrit 44 40-54 % Mean Corpuscular Volume 96 80-99 FL Mean Corpuscular Hemoglobin 33 25-34 PG Mean Corpuscular Hemoglobin Concent 35 32-36 G/DL Red Cell Distribution Width 14.5 10.0-14.5 % Platelet Count 242 130-400 10^3/uL Mean Platelet Volume 10.4 7.4-10.4 FL Neutrophils (%) (Auto) 36 L 42-75 % Lymphocytes (%) (Auto) 55 H 12-44 % Monocytes (%) (Auto) 6 0-12 % Eosinophils (%) (Auto) 2 0-10 % Basophils (%) (Auto) 0 0-10 % Neutrophils # (Auto) 2.6 1.8-7.8 X 10^3 Lymphocytes # (Auto) 3.9 1.0-4.0 X 10^3 Monocytes # (Auto) 0.4 0.0-1.0 X 10^3 Eosinophils # (Auto) 0.1 0.0-0.3 10^3/uL Basophils # (Auto) 0.0 0.0-0.1 10^3/uL Prothrombin Time 12.6 12.2-14.7 SEC INR Comment 0.9 0.8-1.4 Sodium Level 141 135-145 MMOL/L Potassium Level 3.4 L 3.6-5.0 MMOL/L Chloride Level 105 98-107 MMOL/L Carbon Dioxide Level 24 21-32 MMOL/L Anion Gap 12 5-14 MMOL/L Blood Urea Nitrogen 5 L 7-18 MG/DL Creatinine 0.80 0.60-1.30 MG/DL Estimat Glomerular Filtration Rate > 60 BUN/Creatinine Ratio 6 Glucose Level 110 H 70-105 MG/DL Calcium Level 8.7 8.5-10.1 MG/DL Corrected Calcium 8.6 8.5-10.1 MG/DL Total Bilirubin 0.7 0.1-1.0 MG/DL Aspartate Amino Transf (AST/SGOT) 27 5-34 U/L Alanine Aminotransferase (ALT/SGPT) 20 0-55 U/L Alkaline Phosphatase 91 40-136 U/L Total Protein 7.1 6.4-8.2 GM/DL Albumin 4.1 3.2-4.5 GM/DL Serum Alcohol 280 H <10 MG/DL My Orders Orders - CATHY CARRANZA APRN Cbc With Automated Diff (07/07/19 14:33) Comprehensive Metabolic Panel (07/07/19 14:33) Alcohol (07/07/19 14:33) Protime With Inr (07/07/19 14:33) Lactated Ringers (Lr 1000 Ml Iv Solution (07/07/19 15:15) Vital Signs/I&O 07/07/19 14:38 Temp 37.1 Pulse 108 Resp 20 B/P (MAP) 129/94 (106) Pulse Ox 95 O2 Delivery Room Air Capillary Refill : Less Than 3 Seconds Blood Pressure Mean: 106 POS Departure Impression Primary Impression: Alcohol dependence Disposition: 01 HOME, SELF-CARE Condition: Stable Departure-Patient Inst. Decision time for Depature: 15:46 Referrals: ASA VALENCIA DO (PCP/Family) Primary Care Physician JOSLYN GALINDO MD Patient Instructions: Alcohol Abuse and Alcoholism (DC) Add. Discharge Instructions: 1. Go to [facility] tomorrow at 10 AM, I made an appointment for you with the drug and alcohol/substance abuse counselors, they will need to tomorrow and help to facilitate outpatient treatment. All discharge instructions reviewed with patient and/or family. Voiced understanding. Copy Copies To 1: JOSLYN GALINDO MD, PETER J APRN Jul 07, 2019 15:09 POS
[2019-07-07 15:14] LABS: BASOPHILS % (AUTO) 0 % (0-10); EOSINOPHILS # (AUTO) 0.1 10^3/uL (0.0-0.3); EOSINOPHILS % (AUTO) 2 % (0-10); HEMATOCRIT 44 % (40-54); HEMOGLOBIN 15.1 G/DL (13.3-17.7); LYMPHOCYTES # (AUTO) 3.9 X 10^3 (1.0-4.0); LYMPHOCYTES % (AUTO) 55 % (12-44); MEAN CORPUSCULAR HEMOGLOBIN 33 PG (25-34); MEAN CORPUSCULAR HGB CONC 35 G/DL (32-36); MEAN CORPUSCULAR VOLUME 96 FL (80-99); MEAN PLATELET VOLUME 10.4 FL (7.4-10.4); MONOCYTES # (AUTO) 0.4 X 10^3 (0.0-1.0); MONOCYTES % (AUTO) 6 % (0-12); NEUTROPHILS # (AUTO) 2.6 X 10^3 (1.8-7.8); NEUTROPHILS % (AUTO) 36 % (42-75); PLATELET COUNT 242 10^3/uL (130-400); RED CELL DISTRIBUTION WIDTH 14.5 % (10.0-14.5); WHITE BLOOD COUNT 7.1 10^3/uL (4.3-11.0)
[2019-07-07] MEDS ORDERED: LACTATED RINGERS 1,000 ML IV SCH (15:15)
[2019-07-07 15:29] LABS: INR 0.9 (0.8-1.4); PROTHROMBIN TIME PATIENT 12.6 SEC (12.2-14.7)
[2019-07-07 15:43] LABS: ALANINE AMINOTRANSFERASE 20 U/L (0-55); ALBUMIN 4.1 GM/DL (3.2-4.5); ALKALINE PHOSPHATASE 91 U/L (40-136); BILIRUBIN,TOTAL 0.7 MG/DL (0.1-1.0); BUN/CREATININE RATIO 6; CALCIUM 8.7 MG/DL (8.5-10.1); CARBON DIOXIDE 24 MMOL/L (21-32); CHLORIDE 105 MMOL/L (98-107); GFR ESTIMATED > 60; GLUCOSE 110 MG/DL (70-105); POTASSIUM 3.4 MMOL/L (3.6-5.0); SODIUM 141 MMOL/L (135-145); TOTAL PROTEIN 7.1 GM/DL (6.4-8.2)
[2019-07-07 16:01] VITALS: BP 129/94
== END 2019-07-07 16:05 | disposition home or self-care (01) ==
LOC: EDUNIT# 14:31 → ER 14:32
DX: F10.20 Alcohol dependence, uncomplicated (principal); G40.909 Epilepsy, unspecified, not intractable, without status epilepticus; K21.9 Gastro-esophageal reflux disease without esophagitis; F32.9 Major depressive disorder, single episode, unspecified; Z88.5 Allergy status to narcotic agent; Z79.52 Long term (current) use of systemic steroids; Z77.22 Contact with and (suspected) exposure to environmental tobacco smoke (acute) (chronic); Z82.49 Family history of ischemic heart disease and other diseases of the circulatory system; Y90.8 Blood alcohol level of 240 mg/100 ml or more
CPT/HCPCS: 36415; 80053; 80320; 85025; 85610; 99283

== ENCOUNTER 2019-12-30 16:49 | Emergency (ER) | payer SELFPAY ==
[~2019-12-30] VITALS: Ht 165 cm; Wt 104.0 kg
[2019-12-30 16:49] VITALS: BP 149/102
--- NOTE | 2019-12-30 16:56 | ED General ---
General Stated Complaint: L BUTTOCK PAIN,DRUNK Source of Information: Patient Exam Limitations: No Limitations History of Present Illness Date Seen by Provider: December 30, 2019 Time Seen by Provider: 16:54 Initial Comments To ER by EMS from home with reports of low back pain that radiates down the left leg as a numbness sensation. No loss of bowel or bladder control no loss of sensation of his genitals. No fevers. He is an alcoholic with multiple visits to the emergency room here, he also reports anxiety upon arrival. Denies any thoughts of self-harm or harm to others. Timing/Duration: 1-2 Days Severity: Moderate Associated Systoms: Denies Symptoms Allergies and Home Medications Allergies Coded Allergies: codeine (Verified Allergy, Unknown, 09/23/05) Home Medications Pantoprazole Sodium 40 Mg Tablet.dr, 40 MG PO DAILY Prescribed by: EDITH ALMEIDA on 05/01/186 Prednisone 10 Mg Tab, 30 MG PO DAILY Prescribed by: EDITH ALMEIDA on 05/01/186 Patient Home Medication List Home Medication List Reviewed: Yes Review of Systems Review of Systems Constitutional: see HPI EENTM: see HPI Respiratory: no symptoms reported Cardiovascular: no symptoms reported Musculoskeletal: see HPI, back pain Skin: no symptoms reported Psychiatric/Neurological: No Symptoms Reported Hematologic/Lymphatic: No Symptoms Reported Immunological/Allergic: no symptoms reported Past Randoek-Uhbfzd-Arpaub Hx Patient Social History Alcohol Beverage of Choice: Beer, Whiskey, Vodka Drug of Choice: DENIES Type Used: Cigarettes, Smokeless Tobacco 2nd Hand Smoke Exposure: Yes Recent Hopitalizations: No Immunizations Up To Date Tetanus Booster (TDap): Less than 5yrs Date of Influenza Vaccine: May 18, 2016 Seasonal Allergies Seasonal Allergies: Yes Past Medical History Surgeries: Yes (COLONOSCOPY, LEFT EYE SURGERY FOR STRABISMUS AGE 4) Eye Surgery Respiratory: Yes Pneumonia Currently Using CPAP: No Currently Using BIPAP: No Cardiac: No Neurological: Yes (ALCOHOL WITHDRAWAL SEIZURES) Seizure Disorder Reproductive Disorders: No Sexually Transmitted Disease: No HIV/AIDS: No Genitourinary: No Gastrointestinal: Yes (HEPATOMEGALY) Gastroesophageal Reflux Musculoskeletal: No Endocrine: No HEENT: Yes (STRABISMUS EYE SURGERY AGE 4, WEARS GLASSES) Loss of Vision: Denies Hearing Impairment: Denies Cancer: No Psychosocial: Yes (ALCOHOLISM; SUICIDAL IDEATIONS) Depression Integumentary: No Blood Disorders: No Adverse Reaction/Blood Tranf: No Family Medical History Patient reports no known family medical history. Cancer, Hypertension, Psychiatric Problems Physical Exam Vital Signs Capillary Refill : Height, Weight, BMI Height: 5'5.00" Weight: 210lbs. 14.4oz. [id number]; 34.00 BMI Method:Stated General Appearance: No Apparent Distress, WD/WN, Other (alert, rolls off the EMS cot onto our bed. Speech is slurred.) HEENT: PERRL/EOMI Neck: Full Range of Motion, Normal Inspection Respiratory: No Accessory Muscle Use, No Respiratory Distress Gastrointestinal: Normal Bowel Sounds, Non Tender, Soft Extremity: Other (2+ dorsalis pedis pulse bilaterally) Neurologic/Psychiatric: Alert, Oriented x3 Skin: Normal Color, Warm/Dry Progress/Results/Core Measures Suspected Sepsis SIRS Temperature: Pulse: Respiratory Rate: Blood Pressure / Mean: Results/Orders My Orders Orders - CATHY CARRANZA APRN Ketorolac Injection (Toradol Injection) (12/30/19 17:00) Orphenadrine Injection (Norflex Injectio (12/30/19 17:00) Vital Signs/I&O Capillary Refill : Departure Impression Primary Impression: Alcohol dependence Additional Impression: Lumbar radiculopathy Disposition: 01 HOME, SELF-CARE Condition: Stable Departure-Patient Inst. Decision time for Depature: 16:56 Referrals: ASA VALENCIA DO (PCP/Family) Primary Care Physician Patient Instructions: Radiculopathy CATHY CARRANZA APRN December 30, 2019 16:56
[2019-12-30] MEDS ORDERED: ORPHENADRINE 60 MG/2 ML (NORFLEX) AMP IM ONE (17:00)
[2019-12-30] MEDS ORDERED: KETOROLAC 60 MG/2 ML VIAL IM ONE (17:00)
--- NOTE | 2019-12-30 17:24 | NUR ---
[facility] CALLED FOR PT
== END 2019-12-30 17:23 | disposition home or self-care (01) ==
LOC: EDUNIT# 16:49 → ER 16:50
DX: M54.16 Radiculopathy, lumbar region (principal); F10.20 Alcohol dependence, uncomplicated; K21.9 Gastro-esophageal reflux disease without esophagitis; Z88.5 Allergy status to narcotic agent; Z79.52 Long term (current) use of systemic steroids; Z77.22 Contact with and (suspected) exposure to environmental tobacco smoke (acute) (chronic); Z82.49 Family history of ischemic heart disease and other diseases of the circulatory system
CPT/HCPCS: 99284